=== PATIENT | male | born 1980 | race African-American/Black ===

== ENCOUNTER 2017-09-24 15:30 | Inpatient (IN) | payer MEDICAID ==
[~2017-09-24] VITALS: Ht 188 cm; Wt 46.7 kg
[2017-09-24] MEDS ORDERED: Cefepime HCl 1 GM in NS 55 ML IV STA (15:38)
[2017-09-24 15:41] VITALS: BP 128/79
[2017-09-24] MEDS ORDERED: NS 1000ml 1,400 ML IVLG ONE (15:45)
[2017-09-24] MEDS ORDERED: Vancomycin 1 GM in NS 275 ML IV ONE (15:45)
[2017-09-24] MEDS ORDERED: PROAIR HFA8.5 GM INH (15:49)
--- NOTE | 2017-09-24 15:57 | Emergency Room Report ---
History of Present Illness General Chief Complaint: Chest Pain Source: Patient Present Illness HPI The patient called EMS due to chest pain. He's been drinking alcohol and using cocaine. He states he's had trouble with his heart the past with abnormal echocardiogram. EMS gave him aspirin. In addition to that they were unable to give him nitrates because he is taking an [id number] sexual enhancing drug. The pain is now is 6/10. Somewhat pleuritic and exertional. He feels anxiety with this but no nausea. There is been no diaphoresis. The patient does have a productive cough with yellowish to brown phlegm without blood. He also complains about green diarrhea. There is no blood. He also has an abscess in his left buttocks that's been enlarging over the last several days. There is no drainage. The patient is HIV positive and has been off of antivirals for many months. He suffers from PTSD and depression but is not suicidal at this time. Patient states that he was treated for gonorrhea 3 weeks ago and is uncertain whether he's reinfected at this time. Allergies: Coded Allergies: SULFA (SULFONAMIDE ANTIBIOTICS) (Verified Allergy, Unknown, 09/24/17) Uncoded Allergies: SULFA (Allergy, Unknown, 09/24/17) Patient History Past Medical History: see triage record Social History: Reports: smoking, alcohol use, drug use Social History Narrative sometimes homeless Reviewed Nursing Documentation: PMH: Agreed, PSxH: Agreed Nursing Documentation-PMH Hx Cardiac Problems: Yes - "enlarged heart" Hx Asthma: Yes History Of Psychiatric Problem: Yes - PTSD; major depression Review of Systems All Other Systems: negative except mentioned in HPI Physical Exam Vital Signs Date Time Temp Pulse Resp B/P (MAP) Pulse Ox O2 Delivery O2 Flow Rate FiO2 09/24/17 15:37 101.3 94 16 130/73 98 Room Air Sp02 EP Interpretation: reviewed, normal General Appearance: well appearing, no apparent distress, GCS 15, thin Head: normocephalic Eyes: bilateral eye PERRL, bilateral eye Scleral Injection ENT: moist mucus membranes Neck: supple Respiratory: lungs clear, normal breath sounds Cardiovascular #1: regular rate, rhythm Cardiovascular #2: 2+ radial (R) Gastrointestinal: normal inspection, normal bowel sounds, non tender, no mass, non-distended, scaphoid Musculoskeletal: back normal, gait/station normal, normal range of motion Neurologic: alert, oriented x3, grossly normal Psychiatric: mood/affect normal, no suicidal/homicidal ideation Skin: warm/dry, other - deep induration L buttock without erythema Medical Decision Making Diagnostic Impression: Primary Impression: Cellulitis, gluteal, left Additional Impressions: Substance abuse Chest pain Qualified Codes: R07.9 - Chest pain, unspecified HIV (human immunodeficiency virus infection) Noncompliance with antiviral regimen h/o PTSD ER Course The patient presents with chest pain after drug use with a fever and off of antivirals. Differential includes pneumonia, sepsis, abscess/cellulitis, urinary tract infection amongst others. We also have to exclude acute myocardial infarction. Evaluation will be with EKG and cardiac labs. Blood cultures will be obtained including lactate a. The patient will be treated with Tylenol and fluid bolus with antibiotics. He to his immunocompromise state hemostatically will need to be admitted to the hospital. EKG no injury. CXR no infiltrate. Labs with pyuria, normal/low WBC, Tox + for cocaine, THC and amphetamines (BA = 1). Lactic acid normal. Troponin negative. Antibiotics begun. IV fluids infusing. Pain lessened and sleeping. Cellulitis/abscess not at point to be lanced. May need surgical consult in near future. Patient admitted med Dr. Ellis. No beds, signed out to Dr. Carlson. Laboratory Tests Test 09/24/17 15:50 09/24/17 15:55 09/25/17 05:10 Urine Color Hailee Urine Appearance Slightly cloudy Urine pH 6 (4.5-8.0) Urine Specific [place] 1.020 (1.005-1.035) Urine Protein 2+ (NEGATIVE) H Urine Glucose (UA) Negative (NEGATIVE) Urine Ketones Negative (NEGATIVE) Urine Occult Blood Negative (NEGATIVE) Urine Nitrite Negative (NEGATIVE) Urine Bilirubin Negative (NEGATIVE) Urine Ictotest Negative Urine Urobilinogen 4 MG/DL (0.0-1.0) H Urine Leukocyte Esterase 1+ (NEGATIVE) H Urine RBC 0 /HPF (0 - 0) Urine WBC 10-15 /HPF (0 - 0) H Urine Squamous Epithelial Cells Few /LPF (NONE/OCC) Urine Bacteria Few /HPF (NONE) Urine Mucus Moderate /LPF (NONE/OCC) H Urine Opiates Screen Negative (NEGATIVE) Urine Barbiturates Screen Negative (NEGATIVE) Phencyclidine (PCP) Screen Negative (NEGATIVE) Urine Amphetamines Screen Positive (NEGATIVE) H Urine Benzodiazepines Screen Negative (NEGATIVE) Urine Cocaine Screen Positive (NEGATIVE) H Urine Marijuana (THC) Screen Positive (NEGATIVE) H Serum Alcohol 1 mg/dL Neisseria gonorrhoeae RNA Pending White Blood Count 8.6 K/UL (4.8-10.8) 6.2 K/UL (4.8-10.8) Red Blood Count 4.47 M/UL (4.70-6.10) L 4.30 M/UL (4.70-6.10) L Hemoglobin 13.5 G/DL (14.2-18.0) L 13.1 G/DL (14.2-18.0) L Hematocrit 42.7 % (42.0-52.0) 40.9 % (42.0-52.0) L Mean Corpuscular Volume 96 FL (80-99) 95 FL (80-99) Mean Corpuscular Hemoglobin 30.3 PG (27.0-31.0) 30.6 PG (27.0-31.0) Mean Corpuscular Hemoglobin Concent 31.7 G/DL (32.0-36.0) L 32.1 G/DL (32.0-36.0) Red Cell Distribution Width 12.2 % (11.6-14.8) 11.9 % (11.6-14.8) Platelet Count 202 K/UL (150-450) 210 K/UL (150-450) Mean Platelet Volume 5.4 FL (6.5-10.1) L 6.1 FL (6.5-10.1) L Neutrophils (%) (Auto) 65.4 % (45.0-75.0) 62.9 % (45.0-75.0) Lymphocytes (%) (Auto) 21.0 % (20.0-45.0) 22.6 % (20.0-45.0) Monocytes (%) (Auto) 11.6 % (1.0-10.0) H 11.3 % (1.0-10.0) H Eosinophils (%) (Auto) 1.4 % (0.0-3.0) 2.4 % (0.0-3.0) Basophils (%) (Auto) 0.6 % (0.0-2.0) 0.8 % (0.0-2.0) Prothrombin Time 9.7 SEC (9.30-11.50) Prothrombin Time INR 0.9 (0.9-1.1) PTT 30 SEC (23-33) Sodium Level 138 MMOL/L (136-145) 137 MMOL/L (136-145) Potassium Level 3.5 MMOL/L (3.5-5.1) 4.0 MMOL/L (3.5-5.1) Chloride Level 101 MMOL/L (98-107) 105 MMOL/L (98-107) Carbon Dioxide Level 29 MMOL/L (21-32) 24 MMOL/L (21-32) Blood Urea Nitrogen 14 mg/dL (7-18) 9 mg/dL (7-18) Creatinine 1.1 MG/DL (0.55-1.30) 0.9 MG/DL (0.55-1.30) Estimate Glomerular Filtration Rate > 60 mL/min (>60) > 60 mL/min (>60) Glucose Level 101 MG/DL (74-106) 96 MG/DL (74-106) Lactic Acid Level 1.70 mmol/L (0.66-2.22) Calcium Level 8.6 MG/DL (8.5-10.1) 8.1 MG/DL (8.5-10.1) L Total Bilirubin 0.4 MG/DL (0.2-1.0) 0.4 MG/DL (0.2-1.0) Aspartate Amino Transferase (AST) 17 U/L (15-37) 15 U/L (15-37) Alanine Aminotransferase (ALT) 15 U/L (12-78) 18 U/L (12-78) Alkaline Phosphatase 65 U/L (46-116) 49 U/L (46-116) Total Creatine Kinase 162 U/L (26-140) H Troponin I 0.000 ng/mL (0.000-0.056) Pro-B-Type Natriuretic Peptide 13 pg/mL (0-125) Total Protein 8.4 G/DL (6.4-8.2) H 7.1 G/DL (6.4-8.2) Albumin 3.6 G/DL (3.4-5.0) 2.9 G/DL (3.4-5.0) L Globulin 4.8 g/dL 4.2 g/dL Lipase 78 U/L (< 60) H Rapid Plasma Reagin Pending Anion Gap 8 mmol/L (5-15) Albumin/Globulin Ratio 0.7 (1.0-2.7) L EKG Diagnostic Results Rate: normal Rhythm: NSR ST Segments: no acute changes Rhythm Strip Diag. Results EP Interpretation: yes Rhythm: NSR, no PVC's, no ectopy Chest X-Ray Diagnostic Results Chest X-Ray Diagnostic Results : Chest X-Ray Ordered: Yes # of Views/Limited/Complete: 1 View Indication: Other EP Interpretation: Yes Interpretation: no consolidation, no effusion, no pneumothorax, no acute cardiopulmonary disease Impression: No acute disease Electronically Signed by: Chino Huerta MD Last Vital Signs Date Time Temp Pulse Resp B/P (MAP) Pulse Ox O2 Delivery O2 Flow Rate FiO2 09/25/17 00:00 97.8 77 20 107/56 97 Room Air Status: improved Disposition: ADMITTED INPATIENT Condition: Serious Chino Huerta M.D. Sep 24, 2017 15:57
[2017-09-24 16:24] LABS: APPEARANCE,URINE SLIGHTLY CLOUDY; KETONES,URINE NEGATIVE (NEGATIVE); LEUKOCYTE ESTERASE ,URINE 1+ (NEGATIVE); NITRITE,URINE NEGATIVE (NEGATIVE); PH,URINE 6 (4.5-8.0); PROTEIN,URINE 2+ (NEGATIVE); UROBILINOGEN,URINE 4 MG/DL (0.0-1.0)
[2017-09-24 16:24] LABS: BASOPHILS % (AUTO) 0.6 % (0.0-2.0); EOSINOPHILS % (AUTO) 1.4 % (0.0-3.0); MEAN CORPUSCULAR HEMOGLOBIN 30.3 PG (27.0-31.0); MEAN CORPUSCULAR HGB CONC 31.7 G/DL (32.0-36.0); MEAN CORPUSCULAR VOLUME 96 FL (80-99); MEAN PLATELET VOLUME 5.4 FL (6.5-10.1); MONOCYTES % (AUTO) 11.6 % (1.0-10.0); NEUTROPHILS % (AUTO) 65.4 % (45.0-75.0); PLATELET COUNT 202 K/UL (150-450); RED BLOOD COUNT 4.47 M/UL (4.70-6.10); RED CELL DISTRIBUTION WIDTH 12.2 % (11.6-14.8); WHITE BLOOD COUNT 8.6 K/UL (4.8-10.8)
[2017-09-24 16:35] LABS: BACTERIA,URINE FEW /HPF; ICTOTEST NEGATIVE; MUCUS,URINE MODERATE /LPF (NONE/OCC); RBC,URINE 0 /HPF (0 - 0); SQUAMOUS EPITHELIAL CELL,UR FEW /LPF (NONE/OCC)
[2017-09-24 16:36] LABS: INR 0.9 (0.9-1.1); PROTHROMBIN TIME 9.7 SEC (9.30-11.50)
[2017-09-24] MEDS ORDERED: Cefepime 1gm vial ONE (16:57)
[2017-09-24 17:21] LABS: CALCIUM 8.6 MG/DL (8.5-10.1); CARBON DIOXIDE 29 MMOL/L (21-32); CHLORIDE 101 MMOL/L (98-107); CREATININE 1.1 MG/DL (0.55-1.30); GLOMERULAR FILTRATION RATE > 60 mL/min (>60); POTASSIUM 3.5 MMOL/L (3.5-5.1); SODIUM 138 MMOL/L (136-145)
[2017-09-24 17:28] LABS: ALANINE AMINOTRANSFERASE 15 U/L (12-78); ASPARTATE AMINO TRANSFERASE 17 U/L (15-37); TOTAL PROTEIN 8.4 G/DL (6.4-8.2)
[2017-09-24 17:53] VITALS: BP 112/68
[2017-09-24 17:59] LABS: LIPASE 78 U/L (< 60)
[2017-09-24] MEDS ORDERED: Vancomycin 1gm inj IVPB ONE (18:45)
[2017-09-24 19:30] VITALS: BP 108/64
[2017-09-24 21:00] VITALS: BP 110/68
[2017-09-24] MEDS ORDERED: Miralax 17gm pkt ORAL PRN (21:15)
[2017-09-24] MEDS ORDERED: Nitroglycerin Subl 0.4mg tab SL PRN (21:15)
[2017-09-24] MEDS ORDERED: Albuterol/Ipratropium 3ml neb HHN PRN (21:15)
[2017-09-24 22:15] VITALS: BP 109/70
[2017-09-25] VITALS: BP 107/56
[2017-09-25] MEDS ORDERED: Vancomycin 1 GM in D5W 275 ML IV SCH (00:30)
[2017-09-25 07:05] LABS: BASOPHILS % (AUTO) 0.8 % (0.0-2.0); EOSINOPHILS % (AUTO) 2.4 % (0.0-3.0); LYMPHOCYTES % (AUTO) 22.6 % (20.0-45.0); MEAN CORPUSCULAR HEMOGLOBIN 30.6 PG (27.0-31.0); MEAN CORPUSCULAR HGB CONC 32.1 G/DL (32.0-36.0); MEAN CORPUSCULAR VOLUME 95 FL (80-99); MEAN PLATELET VOLUME 6.1 FL (6.5-10.1); MONOCYTES % (AUTO) 11.3 % (1.0-10.0); NEUTROPHILS % (AUTO) 62.9 % (45.0-75.0); PLATELET COUNT 210 K/UL (150-450); RED CELL DISTRIBUTION WIDTH 11.9 % (11.6-14.8); WHITE BLOOD COUNT 6.2 K/UL (4.8-10.8)
[2017-09-25] MEDS: Norco 10mg/325mg tab ORAL PRN ×2 (07:05→13:20)
[2017-09-25 07:51] LABS: ALANINE AMINOTRANSFERASE 18 U/L (12-78); ALBUMIN/GLOBULIN RATIO 0.7 (1.0-2.7); ANION GAP 8 mmol/L (5-15); ASPARTATE AMINO TRANSFERASE 15 U/L (15-37); CALCIUM 8.1 MG/DL (8.5-10.1); CARBON DIOXIDE 24 MMOL/L (21-32); CHLORIDE 105 MMOL/L (98-107); CREATININE 0.9 MG/DL (0.55-1.30); GLOMERULAR FILTRATION RATE > 60 mL/min (>60); SODIUM 137 MMOL/L (136-145); TOTAL PROTEIN 7.1 G/DL (6.4-8.2)
[2017-09-25] MEDS ORDERED: Vancomycin 500mg/D5W 110ml IVPB SCH ×2 (08:00)
[2017-09-25 09:00] VITALS: BP 121/72
[2017-09-25] MEDS ORDERED: Heparin 5000 units/ml inj SUBQ SCH (09:00)
[2017-09-25] MEDS ORDERED: Cefepime HCl 2 GM in D5W 110 ML IV SCH (09:00)
--- NOTE | 2017-09-25 10:31 | Diagnostic Imaging Report ---
Indication: COUGH Technique: One view of the chest Comparison: none Findings: Lungs and pleural spaces are clear. Heart size is normal Impression: No acute process This agrees with the preliminary interpretation provided by the emergency room physician
--- NOTE | 2017-09-25 12:21 | Diagnostic Imaging Report ---
Indication: DYSPNEA Technique: One view of the chest Comparison: 09/24/2017 Findings: Lungs and pleural spaces are clear. Heart size is normal . Less optimal inspiration currently Impression: No acute process
--- NOTE | 2017-09-25 13:22 | Consultation ---
Consult Note Consult Note [id number] LYDIA GOODWIN M.D. Sep 25, 2017 13:22
[2017-09-25] MEDS ORDERED: Promethazine/Codeine 5ml UD ORAL PRN (15:00)
--- NOTE | 2017-09-25 15:03 | History and Physical ---
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 He also complains about green diarrhea. There is no blood. He also has an abscess in his left buttocks that's been enlarging over the last several days. Allergies: Coded Allergies: SULFA (SULFONAMIDE ANTIBIOTICS) (Verified Allergy, Unknown, 09/24/17) Uncoded Allergies: SULFA (Allergy, Unknown, 09/24/17) Medication History Scheduled Albuterol Sulfate* (Proair Hfa*), 2 PUFFS INH Q6H, (Reported) Patient History Healthcare decision maker N Resuscitation status Advanced Directive on File Past Medical/Surgical History Past Medical/Surgical History: (1) HIV (human immunodeficiency virus infection) (2) Substance abuse Review of Systems All Other Systems: negative except mentioned in HPI Physical Exam General Appearance: cachetic Lines, tubes and drains: peripheral HEENT: normocephalic, atraumatic Neck: non-tender, normal alignment Respiratory/Chest: chest wall non-tender, lungs clear Breasts: no masses Cardiovascular/Chest: normal peripheral pulses Abdomen: normal bowel sounds, non tender, hyperactive bowel sounds Genitourinary/Rectal: normal genital exam Extremities: normal range of motion Skin Exam: normal pigmentation 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 Last 24 Hour Vital Signs Date Time Temp Pulse Resp B/P (MAP) Pulse Ox O2 Delivery O2 Flow Rate FiO2 09/25/17 09:00 98.6 74 20 121/72 98 Room Air 09/25/17 00:00 97.8 77 20 107/56 97 Room Air 09/24/17 22:40 98.1 75 20 109/70 99 Room Air 09/24/17 22:15 98.1 75 20 109/70 99 Room Air 09/24/17 21:00 99.1 75 18 110/68 100 Room Air 09/24/17 19:30 99.8 78 18 108/64 100 Room Air 09/24/17 17:57 99.9 09/24/17 17:53 99.9 77 18 112/68 100 Room Air 09/24/17 15:41 101.3 88 25 128/79 98 Room Air 09/24/17 15:41 88 25 Room Air 09/24/17 15:37 101.3 94 16 130/73 98 Room Air Intake and Output 09/25/17 09/26/17 19:00 07:00 Intake Total 520 ml Balance 520 ml IV Total 520 ml Laboratory Tests Test 09/24/17 15:50 09/24/17 15:55 09/25/17 05:10 Urine Color Hailee Urine Appearance Slightly cloudy Urine pH 6 (4.5-8.0) Urine Specific [place] 1.020 (1.005-1.035) Urine Protein 2+ (NEGATIVE) H Urine Glucose (UA) Negative (NEGATIVE) Urine Ketones Negative (NEGATIVE) Urine Occult Blood Negative (NEGATIVE) Urine Nitrite Negative (NEGATIVE) Urine Bilirubin Negative (NEGATIVE) Urine Ictotest Negative Urine Urobilinogen 4 MG/DL (0.0-1.0) H Urine Leukocyte Esterase 1+ (NEGATIVE) H Urine RBC 0 /HPF (0 - 0) Urine WBC 10-15 /HPF (0 - 0) H Urine Squamous Epithelial Cells Few /LPF (NONE/OCC) Urine Bacteria Few /HPF (NONE) Urine Mucus Moderate /LPF (NONE/OCC) H Urine Opiates Screen Negative (NEGATIVE) Urine Barbiturates Screen Negative (NEGATIVE) Phencyclidine (PCP) Screen Negative (NEGATIVE) Urine Amphetamines Screen Positive (NEGATIVE) H Urine Benzodiazepines Screen Negative (NEGATIVE) Urine Cocaine Screen Positive (NEGATIVE) H Urine Marijuana (THC) Screen Positive (NEGATIVE) H Serum Alcohol 1 mg/dL Neisseria gonorrhoeae RNA Pending White Blood Count 8.6 K/UL (4.8-10.8) 6.2 K/UL (4.8-10.8) Red Blood Count 4.47 M/UL (4.70-6.10) L 4.30 M/UL (4.70-6.10) L Hemoglobin 13.5 G/DL (14.2-18.0) L 13.1 G/DL (14.2-18.0) L Hematocrit 42.7 % (42.0-52.0) 40.9 % (42.0-52.0) L Mean Corpuscular Volume 96 FL (80-99) 95 FL (80-99) Mean Corpuscular Hemoglobin 30.3 PG (27.0-31.0) 30.6 PG (27.0-31.0) Mean Corpuscular Hemoglobin Concent 31.7 G/DL (32.0-36.0) L 32.1 G/DL (32.0-36.0) Red Cell Distribution Width 12.2 % (11.6-14.8) 11.9 % (11.6-14.8) Platelet Count 202 K/UL (150-450) 210 K/UL (150-450) Mean Platelet Volume 5.4 FL (6.5-10.1) L 6.1 FL (6.5-10.1) L Neutrophils (%) (Auto) 65.4 % (45.0-75.0) 62.9 % (45.0-75.0) Lymphocytes (%) (Auto) 21.0 % (20.0-45.0) 22.6 % (20.0-45.0) Monocytes (%) (Auto) 11.6 % (1.0-10.0) H 11.3 % (1.0-10.0) H Eosinophils (%) (Auto) 1.4 % (0.0-3.0) 2.4 % (0.0-3.0) Basophils (%) (Auto) 0.6 % (0.0-2.0) 0.8 % (0.0-2.0) Prothrombin Time 9.7 SEC (9.30-11.50) Prothromb Time International Ratio 0.9 (0.9-1.1) Activated Partial Thromboplast Time 30 SEC (23-33) Sodium Level 138 MMOL/L (136-145) 137 MMOL/L (136-145) Potassium Level 3.5 MMOL/L (3.5-5.1) 4.0 MMOL/L (3.5-5.1) Chloride Level 101 MMOL/L (98-107) 105 MMOL/L (98-107) Carbon Dioxide Level 29 MMOL/L (21-32) 24 MMOL/L (21-32) Blood Urea Nitrogen 14 mg/dL (7-18) 9 mg/dL (7-18) Creatinine 1.1 MG/DL (0.55-1.30) 0.9 MG/DL (0.55-1.30) Estimat Glomerular Filtration Rate > 60 mL/min (>60) > 60 mL/min (>60) Glucose Level 101 MG/DL (74-106) 96 MG/DL (74-106) Lactic Acid Level 1.70 mmol/L (0.66-2.22) Calcium Level 8.6 MG/DL (8.5-10.1) 8.1 MG/DL (8.5-10.1) L Total Bilirubin 0.4 MG/DL (0.2-1.0) 0.4 MG/DL (0.2-1.0) Aspartate Amino Transf (AST/SGOT) 17 U/L (15-37) 15 U/L (15-37) Alanine Aminotransferase (ALT/SGPT) 15 U/L (12-78) 18 U/L (12-78) Alkaline Phosphatase 65 U/L (46-116) 49 U/L (46-116) Total Creatine Kinase 162 U/L (26-140) H Troponin I 0.000 ng/mL (0.000-0.056) Pro-B-Type Natriuretic Peptide 13 pg/mL (0-125) Total Protein 8.4 G/DL (6.4-8.2) H 7.1 G/DL (6.4-8.2) Albumin 3.6 G/DL (3.4-5.0) 2.9 G/DL (3.4-5.0) L Globulin 4.8 g/dL 4.2 g/dL Lipase 78 U/L (< 60) H Rapid Plasma Reagin Pending Anion Gap 8 mmol/L (5-15) Albumin/Globulin Ratio 0.7 (1.0-2.7) L Microbiology Date/Time Source Procedure Growth Status 09/24/17 15:50 Urine,Clean Catch Urine Culture - Preliminary NO GROWTH Resulted Height (Feet): 6 Height (Inches): 2.00 Weight (Pounds): 103 Medications Current Medications Medications (Trade) Dose Ordered Sig/[place]ron[place] Route PRN Reason Start Time Stop Time Status Last Admin Dose Admin Acetaminophen (Tylenol) 650 mg Q4H PRN ORAL fever 09/24/17 21:15 10/24/17 21:14 09/25/17 04:32 Acetaminophen/ Hydrocodone Bitart ([place] 10325) 1 ea Q6H PRN ORAL moderate Pain 09/25/17 06:45 11/20/17 06:44 09/25/17 13:20 Albuterol/ Ipratropium (Albuterol/ Ipratropium) 3 ml Q4H PRN HHN Shortness of Breath 09/24/17 21:15 09/29/17 21:14 Heparin Sodium (Porcine) (Heparin 5000 units/ml) 5,000 units EVERY 12 HOURS SUBQ 09/25/17 09:00 10/25/17 08:59 09/25/17 08:58 Levofloxacin 150 ml @ 100 mls/hr Q24H IVPB 09/25/17 15:00 10/02/17 14:59 Nitroglycerin (Ntg) 0.4 mg Every 5 Minutes PRN SL Prn Chest Pain 09/24/17 21:15 10/24/17 21:14 Ondansetron HCl (Zofran) 4 mg Q6H PRN IVP Nausea & Vomiting 09/24/17 21:15 10/24/17 21:14 Polyethylene Glycol (Miralax) 17 gm DAILYPRN PRN ORAL Constipation 09/24/17 21:15 10/24/17 21:14 Sodium Chloride 1,000 ml @ 150 mls/hr Q6H40M IV 09/24/17 23:00 10/24/17 22:59 09/25/17 06:05 Temazepam (Restoril) 15 mg HSPRN PRN ORAL Insomnia 09/24/17 21:15 10/01/17 21:14 Vancomycin HCl (Vanco rx to dose) 1 ea DAILY PRN MISC PER PROTOCOL 09/24/17 22:45 10/24/17 22:44 Vancomycin HCl 500 mg/Dextrose 110 ml @ 110 mls/hr Q12H IVPB 09/25/17 08:00 09/30/17 07:59 09/25/17 08:54 Assessment/Plan Problem List: (1) Cellulitis, gluteal, left ICD Codes: L03.317 - Cellulitis of buttock SNOMED: 91181484 (2) Purulent bronchitis ICD Codes: J41.1 - Mucopurulent chronic bronchitis SNOMED: 48328532 (3) HIV (human immunodeficiency virus infection) ICD Codes: B20 - Human immunodeficiency virus [HIV] disease SNOMED: 78566920 (4) Substance abuse ICD Codes: F19.10 - Other psychoactive substance abuse, uncomplicated SNOMED: 66492750 Assessment/Plan check sputum Iv abx ID evaluation. RAY DAVIDSON Sep 25, 2017 15:03
--- NOTE | 2017-09-25 15:08 | Pulmonology Progress Note ---
Assessment/Plan Problems: (1) Cellulitis, gluteal, left (2) Purulent bronchitis (3) HIV (human immunodeficiency virus infection) (4) Substance abuse Assessment/Plan ID consult appreciated Surgeon called respiratory treatment check sputum d/w oncology social worker. Subjective ROS Limited/Unobtainable: No Constitutional: Reports: no symptoms HEENT: Repors: no symptoms Respiratory: Reports: no symptoms Allergies: Coded Allergies: SULFA (SULFONAMIDE ANTIBIOTICS) (Verified Allergy, Unknown, 09/24/17) Uncoded Allergies: SULFA (Allergy, Unknown, 09/24/17) Objective Last 24 Hour Vital Signs Date Time Temp Pulse Resp B/P (MAP) Pulse Ox O2 Delivery O2 Flow Rate FiO2 09/25/17 09:00 98.6 74 20 121/72 98 Room Air 09/25/17 00:00 97.8 77 20 107/56 97 Room Air 09/24/17 22:40 98.1 75 20 109/70 99 Room Air 09/24/17 22:15 98.1 75 20 109/70 99 Room Air 09/24/17 21:00 99.1 75 18 110/68 100 Room Air 09/24/17 19:30 99.8 78 18 108/64 100 Room Air 09/24/17 17:57 99.9 09/24/17 17:53 99.9 77 18 112/68 100 Room Air 09/24/17 15:41 101.3 88 25 128/79 98 Room Air 09/24/17 15:41 88 25 Room Air 09/24/17 15:37 101.3 94 16 130/73 98 Room Air Intake and Output 09/25/17 09/26/17 19:00 07:00 Intake Total 520 ml Balance 520 ml IV Total 520 ml General Appearance: cachetic HEENT: normocephalic, atraumatic Respiratory/Chest: chest wall non-tender, lungs clear Cardiovascular: normal peripheral pulses, regular rhythm Abdomen: normal bowel sounds, soft, non tender, no organomegaly Genitourinary: normal external genitalia Extremities: no cyanosis Skin: no rash, no lesions Microbiology Date/Time Source Procedure Growth Status 09/24/17 15:50 Urine,Clean Catch Urine Culture - Preliminary NO GROWTH Resulted Laboratory Tests 09/24/17 15:50: Urine Color Hailee, Urine Appearance Slightly cloudy, Urine pH 6, Urine Specific [place] 1.020, Urine Protein 2+H, Urine Glucose (UA) Negative, Urine Ketones Negative, Urine Occult Blood Negative, Urine Nitrite Negative, Urine Bilirubin Negative, Urine Ictotest Negative, Urine Urobilinogen 4H, Urine Leukocyte Esterase 1+H, Urine RBC 0, Urine WBC 10-15H, Urine Squamous Epithelial Cells Few , Urine Bacteria Few, Urine Mucus ModerateH, Urine Opiates Screen Negative, Urine Barbiturates Screen Negative, Phencyclidine (PCP) Screen Negative, Urine Amphetamines Screen PositiveH, Urine Benzodiazepines Screen Negative, Urine Cocaine Screen PositiveH, Urine Marijuana (THC) Screen PositiveH, Serum Alcohol 1, Neisseria gonorrhoeae RNA [Pending] 09/24/17 15:55: White Blood Count 8.6, Red Blood Count 4.47L, Hemoglobin 13.5L, Hematocrit 42.7 , Mean Corpuscular Volume 96, Mean Corpuscular Hemoglobin 30.3, Mean Corpuscular Hemoglobin Concent 31.7L, Red Cell Distribution Width 12.2, Platelet Count 202, Mean Platelet Volume 5.4L, Neutrophils (%) (Auto) 65.4, Lymphocytes (%) (Auto) 21.0, Monocytes (%) (Auto) 11.6H, Eosinophils (%) (Auto) 1.4, Basophils (%) (Auto) 0.6, Prothrombin Time 9.7, Prothromb Time International Ratio 0.9, Activated Partial Thromboplast Time 30, Sodium Level 138, Potassium Level 3.5, Chloride Level 101, Carbon Dioxide Level 29, Blood Urea Nitrogen 14, Creatinine 1.1, Estimat Glomerular Filtration Rate > 60, Glucose Level 101, Lactic Acid Level 1.70, Calcium Level 8.6, Total Bilirubin 0.4, Aspartate Amino Transf (AST/SGOT) 17, Alanine Aminotransferase (ALT/SGPT) 15, Alkaline Phosphatase 65, Total Creatine Kinase 162H, Troponin I 0.000, Pro-B -Type Natriuretic Peptide 13, Total Protein 8.4H, Albumin 3.6, Globulin 4.8, Lipase 78H, Rapid Plasma Reagin [Pending] 09/25/17 05:10: White Blood Count 6.2, Red Blood Count 4.30L, Hemoglobin 13.1L, Hematocrit 40.9L , Mean Corpuscular Volume 95, Mean Corpuscular Hemoglobin 30.6, Mean Corpuscular Hemoglobin Concent 32.1, Red Cell Distribution Width 11.9, Platelet Count 210, Mean Platelet Volume 6.1L, Neutrophils (%) (Auto) 62.9, Lymphocytes ( %) (Auto) 22.6, Monocytes (%) (Auto) 11.3H, Eosinophils (%) (Auto) 2.4, Basophils (%) (Auto) 0.8, Sodium Level 137, Potassium Level 4.0, Chloride Level 105, Carbon Dioxide Level 24, Blood Urea Nitrogen 9, Creatinine 0.9, Estimat Glomerular Filtration Rate > 60, Glucose Level 96, Calcium Level 8.1L, Total Bilirubin 0.4, Aspartate Amino Transf (AST/SGOT) 15, Alanine Aminotransferase ( ALT/SGPT) 18, Alkaline Phosphatase 49, Total Protein 7.1, Albumin 2.9L, Globulin 4.2, Anion Gap 8, Albumin/Globulin Ratio 0.7L Current Medications Medications (Trade) Dose Ordered Sig/[place] Route PRN Reason Start Time Stop Time Status Last Admin Dose Admin Acetaminophen (Tylenol) 650 mg Q4H PRN ORAL fever 09/24/17 21:15 10/24/17 21:14 09/25/17 04:32 Acetaminophen/ Hydrocodone Bitart ([place] 10/325) 1 ea Q6H PRN ORAL moderate Pain 09/25/17 06:45 10/02/17 06:44 09/25/17 13:20 Albuterol/ Ipratropium (Albuterol/ Ipratropium) 3 ml Q4H PRN HHN Shortness of Breath 09/24/17 21:15 09/29/17 21:14 Albuterol/ Ipratropium (Albuterol/ Ipratropium) 3 ml Q6HRT HHN 09/25/17 19:00 09/30/17 18:59 UNV Heparin Sodium (Porcine) (Heparin 5000 units/ml) 5,000 units EVERY 12 HOURS SUBQ 09/25/17 09:00 10/25/17 08:59 09/25/17 08:58 Levofloxacin 150 ml @ 100 mls/hr Q24H IVPB 09/25/17 15:00 10/02/17 14:59 Nitroglycerin (Ntg) 0.4 mg Every 5 Minutes PRN SL Prn Chest Pain 09/24/17 21:15 10/24/17 21:14 Ondansetron HCl (Zofran) 4 mg Q6H PRN IVP Nausea & Vomiting 09/24/17 21:15 10/24/17 21:14 Polyethylene Glycol (Miralax) 17 gm DAILYPRN PRN ORAL Constipation 09/24/17 21:15 10/24/17 21:14 Promethazine HCl/ Codeine (Phenergan with Codeine) 5 ml Q4H PRN ORAL For Cough 09/25/17 15:00 10/25/17 14:59 Sodium Chloride 1,000 ml @ 150 mls/hr Q6H40M IV 09/24/17 23:00 10/24/17 22:59 09/25/17 06:05 Temazepam (Restoril) 15 mg HSPRN PRN ORAL Insomnia 09/24/17 21:15 10/01/17 21:14 Vancomycin HCl (Vanco rx to dose) 1 ea DAILY PRN MISC PER PROTOCOL 09/24/17 22:45 10/24/17 22:44 Vancomycin HCl 500 mg/Dextrose 110 ml @ 110 mls/hr Q12H IVPB 09/25/17 08:00 09/30/17 07:59 09/25/17 08:54 RAY DAVIDSON Sep 25, 2017 15:08
[2017-09-25 16:00] VITALS: BP 115/71
--- NOTE | 2017-09-25 16:01 | Consultation ---
DATE OF CONSULTATION: 09/25/2017 INFECTIOUS DISEASES CONSULTATION CONSULTING PHYSICIAN: Reza Anderson M.D. REQUESTING PHYSICIAN: Aurea Ellis M.D. REASON FOR CONSULTATION: Evaluation of the patient for pneumonia, HIV, left buttock abscess, antibiotic management. HISTORY OF PRESENT ILLNESS: The patient is a 37-year-old male with multiple medical problems as listed above, who was admitted to this medical center due to cough, also swelling and tenderness of the left buttock area. Infectious Diseases consultation has been requested for further evaluation of the patient and antibiotic management. PAST MEDICAL HISTORY: 1. History of HIV, being off of HIV medications for over a year. 2. History of cardiac disease and irregular heartbeat. 3. Hypertension. 4. Asthma. 5. Bronchitis. MEDICATIONS: Vancomycin and cefepime. The patient used to take Prezista, Norvir, and Truvada. ALLERGIES: Sulfa. SOCIAL HISTORY: Significant for abusing marijuana and cocaine. FAMILY HISTORY: Not contributing. PHYSICAL EXAMINATION: VITAL SIGNS: Temperature 98.6, blood pressure 121/72, pulse 86, respiratory rate 18. HEENT: No pale conjunctivae. No icterus. NECK: No lymphadenopathy. CHEST: Clear. HEART: S1 and S2. ABDOMEN: Soft. EXTREMITIES: The patient has abscess in left buttock area. NEUROLOGIC: Awake and alert. LABORATORY AND DIAGNOSTIC DATA: White blood cells 6, hemoglobin 13, platelets 210. UA unremarkable. BUN 9 and creatinine 0.9. ALT, AST and alkaline phosphatase unremarkable. Urine culture is pending. Chest x-ray, no acute process. ASSESSMENT: The patient is a 37-year-old male with multiple medical problems who was admitted to this medical center with: 1. Bronchitis. 2. Human immunodeficiency virus off of medication, unknown CD4 count. 3. Left buttock abscess mostly due to Staphylococcus aureus. 4. History of drug abuse. 5. History of alcohol abuse. 6. Rule out sexually transmitted disease. PLAN: 1. We will continue the patient on vancomycin. We will change cefepime to Levaquin. 2. Monitor CBC. 3. Monitor BMP. 4. We will check CD4 count. 5. Monitor RPR, GC, and chlamydia with screening. 6. Monitor cultures (blood, urine, sputum). 7. Recommend surgical consultation for drainage of the abscess. 8. Based on the patient's clinical course and labs, we will do further recommendation. Thank you, Dr. Ellis, for allowing me to participate in the care of this patient. I will follow the patient with you during this hospitalization. Reza Anderson M.D. DR: Johana JOB#: [id number] CC:
[2017-09-25] MEDS ORDERED: 1/2 NS 1000ml IV ONE ×2 (18:14)
[2017-09-25] MEDS ORDERED: Tubing IV Secondary IV ONE (18:14)
[2017-09-25] MEDS ORDERED: Albuterol/Ipratropium 3ml neb HHN SCH (19:00)
[2017-09-25] MEDS ORDERED: Vancomycin 500 MG in D5W 275 ML IVPB SCH (20:00)
--- NOTE | 2017-09-26 19:00 | Discharge Summary 2 SIG ---
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 He denied blood in the stool. He also reported abscess in the left buttock which was enlarging over the last several days. The patient was febrile, temperature - 101.3 degrees. No leukocytosis. Otherwise, vital signs were stable. Urine toxicology screen was positive for amphetamine, cocaine and marijuana. The patient with history of HIV, bipolar and PTSD as well as the substance abuse. The patient reported not following recently with HIV provider and not taking ART medications. EKG revealed no acute ischemic changes. Troponin was negative. Chest x-ray revealed clear lungs. Lactic acid within normal limits. Urinalysis revealed pyuria. The patient admitted with left gluteal cellulitis, substance abuse, HIV status, purulent bronchitis, and noncompliance with the anti-retroviral therapy. HOSPITAL COURSE: The patient admitted. The patient started on the empiric antibiotics. ID consulted. ID seen and evaluated the patient, optimized antibiotic regimen and suggested surgery evaluation for possible drainage of the abscess. Surgery consult was requested. CD4 count was ordered along with testing for STD. Supplemental oxygen provided as needed to keep pulse oximetry above 92%. Sputum culture collected and was preliminary negative. Blood culture were negative. Urine culture revealed mixed gram-positive organism. No leukocytosis. Fever resolved. Pulse oximetry was stable on room air. Fever resolved next day. No chest pain. egg factory worker seen the patient and discussed housing as well as referral to different resources and importance of following with HIV provider. Psychiatric evaluation was requested due to history of PTSD and bipolar disorder. However, the patient decided to elope. He stated he wants to smoke. The patient was explained by nursing staff about non-smoking policy at [facility] and was offered nicotine patch. The patient refused nicotine patch and at some point eloped. FINAL DIAGNOSES: 1. Left gluteal cellulitis. 2. Purulent bronchitis. 3. Human immunodeficiency virus status. 4. Noncompliance with anti-retroviral therapy. 5. Polysubstance abuse (methamphetamine, cocaine and marijuana). Aurea Ellis M.D. I have been assigned to dictate discharge summary on this account and I was not involved in the patient's management. Terri VegasIvanna sandoval DR: JOÃO JOB#: [id number] CC: VALERIE
--- NOTE | 2017-09-27 08:41 | Cardiology Report ---
APPROVED REPORT EKG Measurement Heart [id number] Normal sinus rhythm Minimal voltage criteria for LVH, may be normal variant Nonspecific ST and T wave abnormality Abnormal ECG
== END 2017-09-25 18:15 | disposition left against medical advice (07) | DRG 894 ==
LOC: EDBD 15:30 → EMR 16:01 → EDBEDREQ 21:38 → 4E 21:40
DX: L03.317 Cellulitis of buttock (principal); B20 Human immunodeficiency virus [HIV] disease; F14.10 Cocaine abuse, uncomplicated; L02.31 Cutaneous abscess of buttock; Z59.0 Homelessness; Z88.2 Allergy status to sulfonamides; J41.1 Mucopurulent chronic bronchitis; F31.9 Bipolar disorder, unspecified; F43.10 Post-traumatic stress disorder, unspecified; Z91.19 Patient's noncompliance with other medical treatment and regimen; F15.10 Other stimulant abuse, uncomplicated; F12.10 Cannabis abuse, uncomplicated; J45.909 Unspecified asthma, uncomplicated; B95.61 Methicillin susceptible Staphylococcus aureus infection as the cause of diseases classified elsewhere; R07.9 Chest pain, unspecified; F17.200 Nicotine dependence, unspecified, uncomplicated
CPT/HCPCS: 36415; 71010; 80053; 80307; 80329; 81003; 82550; 83605; 83690; 83880; 84484; 85025; 85610; 85730; 86592; 87040; 87070; 87081; 87086; 87205; 87590; 93005; 99285

== ENCOUNTER 2017-09-26 05:37 | Inpatient (IN) | payer MEDICAID ==
[~2017-09-26] VITALS: Ht 188 cm; Wt 63.5 kg
[~2017-09-26 05:37] MED LIST: PROAIR HFA8.5 GM INH
--- NOTE | 2017-09-26 05:52 | Emergency Room Report ---
History of Present Illness General Chief Complaint: Skin Rash/Abscess Source: Patient Present Illness HPI Patient 37-year-old male brought in by EMS after increased left buttock swelling. Patient had prior history of HIV. He had recently been in the hospital and left AGAINST MEDICAL ADVICE. Patient was noted to have some drainage from the left buttock area. Patient prior history of cellulitis. He denies any fever he reported having increased pain. Allergies: Coded Allergies: SULFA (SULFONAMIDE ANTIBIOTICS) (Verified Allergy, Unknown, 09/24/17) Patient History Past Medical History: see triage record Reviewed Nursing Documentation: PMH: Agreed, PSxH: Agreed Nursing Documentation-PMH Hx Cardiac Problems: Yes Hx Hypertension: Yes Hx Asthma: Yes Hx Cancer: No Hx Gastrointestinal Problems: No Hx Neurological Problems: Yes Hx Dizziness: Yes Hx Headaches: Yes Hx Weakness: Yes Hx Fatigue: Yes Review of Systems All Other Systems: negative except mentioned in HPI Physical Exam Vital Signs Date Time Temp Pulse Resp B/P (MAP) Pulse Ox O2 Delivery O2 Flow Rate FiO2 09/26/17 05:35 98.1 92 20 146/82 98 Room Air Sp02 EP Interpretation: reviewed, normal General Appearance: normal inspection, well appearing, no apparent distress, alert, GCS 15, thin Head: atraumatic ENT: normal ENT inspection, hearing grossly normal, normal voice Neck: normal inspection, full range of motion, supple, no bony tend Respiratory: normal inspection, lungs clear, normal breath sounds, no respiratory distress, no retraction, no wheezing Cardiovascular #1: regular rate, rhythm, no edema Gastrointestinal: normal inspection, normal bowel sounds, non tender, soft, no guarding, no hernia Genitourinary: no CVA tenderness Musculoskeletal: normal inspection, back normal, normal range of motion Neurologic: normal inspection, alert, oriented x3, responsive, speech normal Psychiatric: normal inspection, judgement/insight normal, mood/affect normal Skin: other - left buttock fluctuance erythema, purulent Medical Decision Making Diagnostic Impression: Primary Impression: Left buttock abscess Additional Impression: HIV disease ER Course Patient presented for skin rash. Differential diagnosis included was not limited to abscess, cellulitis, folliculitis, Fourniere's gangrene, among others.Because of complexity of patient's case laboratory testing and imaging studies were ordered.Patient was given IV antibiotics. The patient appears to have a left buttock abscess.The patient's abscess appears to be a fairly sizable likely management by general surgery. Dr. Ellis was contacted for inpatient management due to complexity of medical condition. Labs Test 09/26/17 06:00 White Blood Count 8.7 K/UL (4.8-10.8) Red Blood Count 4.42 M/UL (4.70-6.10) Hemoglobin 14.2 G/DL (14.2-18.0) Hematocrit 42.3 % (42.0-52.0) Mean Corpuscular Volume 96 FL (80-99) Mean Corpuscular Hemoglobin 32.2 PG (27.0-31.0) Mean Corpuscular Hemoglobin Concent 33.6 G/DL (32.0-36.0) Red Cell Distribution Width 11.8 % (11.6-14.8) Platelet Count 224 K/UL (150-450) Mean Platelet Volume 6.1 FL (6.5-10.1) Neutrophils (%) (Auto) 67.4 % (45.0-75.0) Lymphocytes (%) (Auto) 18.8 % (20.0-45.0) Monocytes (%) (Auto) 11.8 % (1.0-10.0) Eosinophils (%) (Auto) 1.2 % (0.0-3.0) Basophils (%) (Auto) 0.8 % (0.0-2.0) Prothrombin Time 10.3 SEC (9.30-11.50) Prothromb Time International Ratio 1.0 (0.9-1.1) Activated Partial Thromboplast Time 31 SEC (23-33) Sodium Level 135 MMOL/L (136-145) Potassium Level 4.1 MMOL/L (3.5-5.1) Chloride Level 99 MMOL/L (98-107) Carbon Dioxide Level 30 MMOL/L (21-32) Anion Gap 6 mmol/L (5-15) Blood Urea Nitrogen 8 mg/dL (7-18) Creatinine 0.9 MG/DL (0.55-1.30) Estimat Glomerular Filtration Rate > 60 mL/min (>60) Glucose Level 76 MG/DL (74-106) Calcium Level 8.7 MG/DL (8.5-10.1) Total Bilirubin 0.5 MG/DL (0.2-1.0) Aspartate Amino Transf (AST/SGOT) 18 U/L (15-37) Alanine Aminotransferase (ALT/SGPT) 17 U/L (12-78) Alkaline Phosphatase 53 U/L (46-116) Total Protein 8.0 G/DL (6.4-8.2) Albumin 3.3 G/DL (3.4-5.0) Globulin 4.7 g/dL Albumin/Globulin Ratio 0.7 (1.0-2.7) Last Vital Signs Date Time Temp Pulse Resp B/P (MAP) Pulse Ox O2 Delivery O2 Flow Rate FiO2 09/26/17 05:35 98.1 92 20 146/82 98 Room Air Status: improved Disposition: HOME, SELF-CARE Condition: Stable Som Kang Sep 26, 2017 05:52
[2017-09-26] MEDS ORDERED: Unasyn 3gm Inj ONE (05:53)
[2017-09-26] MEDS ORDERED: Ampicillin/Sulbactam Sod 3 GM in NS 110 ML IVPB ONE (06:00)
[2017-09-26] MEDS ORDERED: Nitroglycerin Subl 0.4mg tab SL PRN (06:30)
[2017-09-26] MEDS ORDERED: Miralax 17gm pkt ORAL PRN (06:30)
[2017-09-26] MEDS ORDERED: Albuterol/Ipratropium 3ml neb HHN PRN (06:30)
[2017-09-26 06:34] VITALS: BP 146/82
[2017-09-26 06:55] LABS: BASOPHILS % (AUTO) 0.8 % (0.0-2.0); EOSINOPHILS % (AUTO) 1.2 % (0.0-3.0); LYMPHOCYTES % (AUTO) 18.8 % (20.0-45.0); MEAN CORPUSCULAR HEMOGLOBIN 32.2 PG (27.0-31.0); MEAN CORPUSCULAR HGB CONC 33.6 G/DL (32.0-36.0); MEAN CORPUSCULAR VOLUME 96 FL (80-99); MEAN PLATELET VOLUME 6.1 FL (6.5-10.1); MONOCYTES % (AUTO) 11.8 % (1.0-10.0); NEUTROPHILS % (AUTO) 67.4 % (45.0-75.0); PLATELET COUNT 224 K/UL (150-450); RED BLOOD COUNT 4.42 M/UL (4.70-6.10); RED CELL DISTRIBUTION WIDTH 11.8 % (11.6-14.8); WHITE BLOOD COUNT 8.7 K/UL (4.8-10.8)
[2017-09-26 07:02] LABS: ANION GAP 6 mmol/L (5-15); CALCIUM 8.7 MG/DL (8.5-10.1); CARBON DIOXIDE 30 MMOL/L (21-32); CHLORIDE 99 MMOL/L (98-107); CREATININE 0.9 MG/DL (0.55-1.30); GLOMERULAR FILTRATION RATE > 60 mL/min (>60); POTASSIUM 4.1 MMOL/L (3.5-5.1); SODIUM 135 MMOL/L (136-145)
[2017-09-26 07:05] LABS: PROTHROMBIN TIME 10.3 SEC (9.30-11.50)
[2017-09-26 07:07] LABS: ALANINE AMINOTRANSFERASE 17 U/L (12-78); ALBUMIN/GLOBULIN RATIO 0.7 (1.0-2.7); ASPARTATE AMINO TRANSFERASE 18 U/L (15-37)
[2017-09-26 08:29] VITALS: BP 112/66
[2017-09-26] MEDS: Heparin 5000 units/ml inj SUBQ SCH ×2 (09:00→20:28)
[2017-09-26] MEDS ORDERED: Cefepime HCl 2 GM in D5W 110 ML IV SCH (09:00)
--- NOTE | 2017-09-26 09:09 | Infectious Diseases Prog Note ---
Assessment/Plan Assessment/Plan A: ASSESSMENT: The patient is a 37-year-old male with Fever Bronchitis. Human immunodeficiency virus off of medication, unknown CD4 count. Left buttock abscess mostly due to Staphylococcus aureus. SP I& D 09/26 History of drug abuse. History of alcohol abuse. Rule out sexually transmitted disease. History of cardiac disease and irregular heartbeat. Hypertension. Asthma. Bronchitis PLAN: continue the patient on vancomycin d# 2 and Levaquin. d# 1/ 5 Monitor CBC. Monitor BMP. CD4 count. Monitor RPR, GC, and chlamydia with screening. Monitor cultures (blood, urine, sputum). Recommend surgical consultation for drainage of the abscess. Subjective Constitutional: Denies: no symptoms, fever, chills, fatigue, anorexia, drenching sweats, other Allergies: Coded Allergies: SULFA (SULFONAMIDE ANTIBIOTICS) (Verified Allergy, Unknown, 09/24/17) Objective Vital Signs Last 24 Hour Vital Signs Date Time Temp Pulse Resp B/P (MAP) Pulse Ox O2 Delivery O2 Flow Rate FiO2 09/26/17 08:29 97.0 84 24 112/66 96 Room Air 09/26/17 07:55 98.1 92 20 146/82 98 Room Air 09/26/17 06:34 98.1 92 20 146/82 98 Room Air 09/26/17 05:35 98.1 92 20 146/82 98 Room Air Height (Feet): 6 Height (Inches): 2.00 Weight (Pounds): 140 HEENT: anicteric Respiratory/Chest: no respiratory distress Cardiovascular: regular rhythm Abdomen: no organomegaly Laboratory Tests Test 09/26/17 06:00 White Blood Count 8.7 K/UL (4.8-10.8) Red Blood Count 4.42 M/UL (4.70-6.10) L Hemoglobin 14.2 G/DL (14.2-18.0) Hematocrit 42.3 % (42.0-52.0) Mean Corpuscular Volume 96 FL (80-99) Mean Corpuscular Hemoglobin 32.2 PG (27.0-31.0) H Mean Corpuscular Hemoglobin Concent 33.6 G/DL (32.0-36.0) Red Cell Distribution Width 11.8 % (11.6-14.8) Platelet Count 224 K/UL (150-450) Mean Platelet Volume 6.1 FL (6.5-10.1) L Neutrophils (%) (Auto) 67.4 % (45.0-75.0) Lymphocytes (%) (Auto) 18.8 % (20.0-45.0) L Monocytes (%) (Auto) 11.8 % (1.0-10.0) H Eosinophils (%) (Auto) 1.2 % (0.0-3.0) Basophils (%) (Auto) 0.8 % (0.0-2.0) Prothrombin Time 10.3 SEC (9.30-11.50) Prothromb Time International Ratio 1.0 (0.9-1.1) Activated Partial Thromboplast Time 31 SEC (23-33) Sodium Level 135 MMOL/L (136-145) L Potassium Level 4.1 MMOL/L (3.5-5.1) Chloride Level 99 MMOL/L (98-107) Carbon Dioxide Level 30 MMOL/L (21-32) Anion Gap 6 mmol/L (5-15) Blood Urea Nitrogen 8 mg/dL (7-18) Creatinine 0.9 MG/DL (0.55-1.30) Estimat Glomerular Filtration Rate > 60 mL/min (>60) Glucose Level 76 MG/DL (74-106) Calcium Level 8.7 MG/DL (8.5-10.1) Total Bilirubin 0.5 MG/DL (0.2-1.0) Aspartate Amino Transf (AST/SGOT) 18 U/L (15-37) Alanine Aminotransferase (ALT/SGPT) 17 U/L (12-78) Alkaline Phosphatase 53 U/L (46-116) Total Protein 8.0 G/DL (6.4-8.2) Albumin 3.3 G/DL (3.4-5.0) L Globulin 4.7 g/dL Albumin/Globulin Ratio 0.7 (1.0-2.7) L Current Medications Medications (Trade) Dose Ordered Sig/Petrona Route PRN Reason Start Time Stop Time Status Last Admin Dose Admin Acetaminophen (Tylenol) 650 mg Q4H PRN ORAL fever 09/26/17 06:30 10/26/17 06:29 Albuterol/ Ipratropium (Albuterol/ Ipratropium) 3 ml EVERY 4 HOURS PRN HHN Shortness of Breath 11/14/17 06:30 10/01/17 06:29 Cefepime HCl 2 gm/ Dextrose 110 ml @ 220 mls/hr EVERY 12 HOURS IV 09/26/17 09:00 10/03/17 08:59 Dextrose (Dextrose 50%) STAT PRN IV Hypoglycemia 09/26/17 06:30 10/26/17 06:29 Heparin Sodium (Porcine) (Heparin 5000 units/ml) 5,000 units EVERY 12 HOURS SUBQ 09/26/17 09:00 10/26/17 08:59 Nitroglycerin (Ntg) 0.4 mg Every 5 minutes PRN SL Prn Chest Pain 09/26/17 06:30 10/26/17 06:29 Ondansetron HCl (Zofran) 4 mg Q6H PRN IVP Nausea & Vomiting 09/26/17 06:30 10/26/17 06:29 Polyethylene Glycol (Miralax) 17 gm DAILYPRN PRN ORAL Constipation 09/26/17 06:30 10/26/17 06:29 Temazepam (Restoril) 15 mg HSPRN PRN ORAL Insomnia 09/26/17 06:30 10/03/17 06:29 Vancomycin HCl/ Dextrose 250 ml @ 166.667 mls/hr Q12H IVPB 09/26/17 10:00 10/01/17 09:59 LYDIA GOODWIN M.D. Sep 26, 2017 09:09
--- NOTE | 2017-09-26 09:15 | Consultation ---
History of Present Illness General Chief Complaint: Skin Rash/Abscess Reason for Consultation: left buttock abscess Present Illness HPI 37M with history of HIV no currently on any antivirals or treatment presented with left buttock abscess. As per patient, 4 days ago first noted a small painful lump on left buttock. It has since progressively became larger and more painful. Recently noted some purulent drainage from area. Came to ED yesterday for evaluation and was admitted. Left hospital AMA soon after but then returned to ED. Surgery called to evaluate. Patient evaluated and chart reviewed. Allergies: Coded Allergies: SULFA (SULFONAMIDE ANTIBIOTICS) (Verified Allergy, Unknown, 09/24/17) Medication History Scheduled Albuterol Sulfate* (Proair Hfa*), 2 PUFFS INH Q6H, (Reported) Patient History History Provided By: Medical Record Healthcare decision maker Resuscitation status Advanced Directive on File Past Medical/Surgical History Past Medical/Surgical History: (1) Purulent bronchitis (2) HIV disease (3) Left buttock abscess Review of Systems Constitutional: Denies: no symptoms, see HPI, chills, sweats, fever, malaise, weakness, other Eye: Denies: no symptoms, see HPI, eye pain, blurred vision, tearing, double vision, nose pain, nose congestion, acuity changes, discharge, other ENT: Denies: no symptoms, see HPI, ear pain, ear discharge, nose pain, nose congestion, throat pain, throat swelling, mouth pain, hearing loss, nasal discharge, other Respiratory: Denies: no symptoms, see HPI, cough, orthopnea, shortness of breath, stridor, wheezing, RAMACHANDRAN, sputum, other Cardiovascular: Denies: no symptoms, see HPI, chest pain, edema, palpitations, syncope, PND, other Gastrointestinal: Denies: no symptoms, see HPI, abdominal pain, constipation, diarrhea, nausea, vomiting, melena, hematemesis, other Genitourinary: Denies: no symptoms, see HPI, discharge, dysuria, frequency, hematuria, pain, retention, incontinence, urgency, vag bleed/dc, other Musculoskeletal: Denies: no symptoms, see HPI, back pain, gout, joint pain, joint swelling, muscle pain, muscle stiffness, other Skin: Reports: other - left buttock abscess 6cm x 4cm Psychiatric: Denies: no symptoms, see HPI, prior hx, anxiety, depressed feelings, emotional problems, SI, HI, hallucinations, other Neurological: Denies: no symptoms, see HPI, headache, numbness, paresthesia, seizure, tingling, tremors, focal weakness, syncope, dizziness, other Endocrine: Denies: no symptoms, see HPI, excessive sweating, flushing, intolerance to temperature, increased thirst, increased urine, unexplained weight loss, other Hematologic/Lymphatic: Denies: no symptoms, see HPI, anemia, blood clots, easy bleeding, easy bruising, swollen glands, diathesis, other Physical Exam General Appearance: no apparent distress, alert Lines, tubes and drains: peripheral HEENT: normocephalic, mucous membranes moist, PERRL Neck: normal inspection Respiratory/Chest: normal breath sounds, no respiratory distress, no accessory muscle use Cardiovascular/Chest: normal peripheral pulses Abdomen: normal bowel sounds, non tender, soft, no organomegaly, no mass Extremities: non-tender, normal inspection Skin Exam: other - 6cm x 4cm left buttock abscess with spontaneous drainage of purulent material from area of fluctuance. surrounding cellulitis. tender on exam. Neurologic: alert, oriented x 3 Last 24 Hour Vital Signs Date Time Temp Pulse Resp B/P (MAP) Pulse Ox O2 Delivery O2 Flow Rate FiO2 09/26/17 08:29 97.0 84 24 112/66 96 Room Air 09/26/17 07:55 98.1 92 20 146/82 98 Room Air 09/26/17 06:34 98.1 92 20 146/82 98 Room Air 09/26/17 05:35 98.1 92 20 146/82 98 Room Air Laboratory Tests Test 09/26/17 06:00 White Blood Count 8.7 K/UL (4.8-10.8) Red Blood Count 4.42 M/UL (4.70-6.10) L Hemoglobin 14.2 G/DL (14.2-18.0) Hematocrit 42.3 % (42.0-52.0) Mean Corpuscular Volume 96 FL (80-99) Mean Corpuscular Hemoglobin 32.2 PG (27.0-31.0) H Mean Corpuscular Hemoglobin Concent 33.6 G/DL (32.0-36.0) Red Cell Distribution Width 11.8 % (11.6-14.8) Platelet Count 224 K/UL (150-450) Mean Platelet Volume 6.1 FL (6.5-10.1) L Neutrophils (%) (Auto) 67.4 % (45.0-75.0) Lymphocytes (%) (Auto) 18.8 % (20.0-45.0) L Monocytes (%) (Auto) 11.8 % (1.0-10.0) H Eosinophils (%) (Auto) 1.2 % (0.0-3.0) Basophils (%) (Auto) 0.8 % (0.0-2.0) Prothrombin Time 10.3 SEC (9.30-11.50) Prothromb Time International Ratio 1.0 (0.9-1.1) Activated Partial Thromboplast Time 31 SEC (23-33) Sodium Level 135 MMOL/L (136-145) L Potassium Level 4.1 MMOL/L (3.5-5.1) Chloride Level 99 MMOL/L (98-107) Carbon Dioxide Level 30 MMOL/L (21-32) Anion Gap 6 mmol/L (5-15) Blood Urea Nitrogen 8 mg/dL (7-18) Creatinine 0.9 MG/DL (0.55-1.30) Estimat Glomerular Filtration Rate > 60 mL/min (>60) Glucose Level 76 MG/DL (74-106) Calcium Level 8.7 MG/DL (8.5-10.1) Total Bilirubin 0.5 MG/DL (0.2-1.0) Aspartate Amino Transf (AST/SGOT) 18 U/L (15-37) Alanine Aminotransferase (ALT/SGPT) 17 U/L (12-78) Alkaline Phosphatase 53 U/L (46-116) Total Protein 8.0 G/DL (6.4-8.2) Albumin 3.3 G/DL (3.4-5.0) L Globulin 4.7 g/dL Albumin/Globulin Ratio 0.7 (1.0-2.7) L Height (Feet): 6 Height (Inches): 2.00 Weight (Pounds): 140 Medications Current Medications Medications (Trade) Dose Ordered Sig/Petrona Route PRN Reason Start Time Stop Time Status Last Admin Dose Admin Acetaminophen (Tylenol) 650 mg Q4H PRN ORAL fever 09/26/17 06:30 10/26/17 06:29 Albuterol/ Ipratropium (Albuterol/ Ipratropium) 3 ml EVERY 4 HOURS PRN HHN Shortness of Breath 09/26/17 06:30 10/01/17 06:29 Cefepime HCl 2 gm/ Dextrose 110 ml @ 220 mls/hr EVERY 12 HOURS IV 09/26/17 09:00 10/03/17 08:59 Dextrose (Dextrose 50%) STAT PRN IV Hypoglycemia 09/26/17 06:30 10/26/17 06:29 Heparin Sodium (Porcine) (Heparin 5000 units/ml) 5,000 units EVERY 12 HOURS SUBQ 09/26/17 09:00 10/26/17 08:59 Nitroglycerin (Ntg) 0.4 mg Every 5 minutes PRN SL Prn Chest Pain 09/26/17 06:30 10/26/17 06:29 Ondansetron HCl (Zofran) 4 mg Q6H PRN IVP Nausea & Vomiting 09/26/17 06:30 10/26/17 06:29 Polyethylene Glycol (Miralax) 17 gm DAILYPRN PRN ORAL Constipation 09/26/17 06:30 10/26/17 06:29 Temazepam (Restoril) 15 mg HSPRN PRN ORAL Insomnia 09/26/17 06:30 10/03/17 06:29 Vancomycin HCl/ Dextrose 250 ml @ 166.667 mls/hr Q12H IVPB 09/26/17 10:00 10/01/17 09:59 Assessment/Plan Problem List: (1) Left buttock abscess Assessment & Plan: 37M left buttock abscess. Afebrile, HD stable, no leukocytosis, labs okay, on exam has 6cm x 4cm left buttock abscess with spontaneous drainage of pus. Recommend I&D to properly evacuate and clean abscess After long discussion with patient, decision made to proceed with I&D at bedside. Consent obtained. -will obtain items required for I&D and perform at bedside today thank you for this consultation. ICD Codes: L02.31 - Cutaneous abscess of buttock SNOMED: 06953973 Status: stable Kuldeep Herring Sep 26, 2017 09:15
[2017-09-26] MEDS ORDERED: Lidocaine 1% 10mg/ml/Epi 0.005mg/ml 30ml vial INJ ONE (09:45)
[2017-09-26] MEDS: Vancomycin 1250mg/D5W 250ml IVPB SCH ×2 (10:24→21:33)
[2017-09-26 12:00] VITALS: BP 117/74
--- NOTE | 2017-09-26 12:37 | Operative Note - PDOC ---
Operative Note Operative Note Date of Operation/Procedure: Sep 26, 2017 Pre-op Diagnosis: left buttock abscess 6cm x 4cm Procedure: incision and drainage of left buttock abscess Post-op Diagnosis: same as pre-op Surgeon: urmila matos Anesthesia: local Specimen: yes - cultures taken Complications: none Condition: stable Fluids: n/a Estimated Blood Loss: minimal Drains: none Packing: plain iodofoam packing and dressings Implant(s) used?: No Indications for Procedure 37M with large 6cm x 4cm left buttock abscess. Recommend I&D and procedure indicated. Please refer to consult note for details. Consent obtained for bedside procedure. Description of Procedure Patient made comfortable at bedside. Pre procedure time out was taken identifying the patient, procedure, and staff. All equipment was available in room. LEFT buttock was cleaned, prepped and draped in standard surgical fashion. 1%lido with epi was infiltrated in proposed skin site at area of maximum fluctuance. Using fresh #11 scalpel a cruciate skin incision was made. 5-10cc purulent fluid evacuated and some sent for cultures. wound explored and then cleaned with sterile normal saline. once complete and clean packing and dressings were applied. patient tolerated procedure well. Kuldeep Herring Sep 26, 2017 12:37
[2017-09-26] MEDS: Norco 5mg/325mg tab ORAL PRN ×2 (14:56→21:32)
[2017-09-26 15:49] VITALS: BP 140/90
--- NOTE | 2017-09-26 17:46 | History and Physical ---
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 He also complains about green diarrhea. There is no blood. He also has an abscess in his left buttocks that's been enlarging over the last several days.. Pt left AMA yesterday to come back early this morning. Allergies: Coded Allergies: SULFA (SULFONAMIDE ANTIBIOTICS) (Verified Allergy, Unknown, 09/24/17) Medication History Scheduled Albuterol Sulfate* (Proair Hfa*), 2 PUFFS INH Q6H, (Reported) Patient History Healthcare decision maker Resuscitation status Full Code Advanced Directive on File Past Medical/Surgical History Past Medical/Surgical History: (1) HIV disease Review of Systems All Other Systems: negative except mentioned in HPI Physical Exam General Appearance: cachetic Lines, tubes and drains: peripheral HEENT: normocephalic, atraumatic Neck: non-tender, normal alignment Respiratory/Chest: chest wall non-tender, lungs clear Breasts: no masses Cardiovascular/Chest: normal peripheral pulses Abdomen: normal bowel sounds Last 24 Hour Vital Signs Date Time Temp Pulse Resp B/P (MAP) Pulse Ox O2 Delivery O2 Flow Rate FiO2 09/26/17 15:55 98.1 09/26/17 15:49 98.1 97 18 140/90 100 Room Air 09/26/17 13:21 99.0 09/26/17 12:20 76 18 Room Air 21 09/26/17 12:00 97.0 72 22 117/74 97 Room Air 09/26/17 08:29 97.0 84 24 112/66 96 Room Air 09/26/17 07:55 98.1 92 20 146/82 98 Room Air 09/26/17 06:34 98.1 92 20 146/82 98 Room Air 09/26/17 05:35 98.1 92 146/82 98 Room Air Laboratory Tests Test 09/26/17 06:00 White Blood Count 8.7 K/UL (4.8-10.8) Red Blood Count 4.42 M/UL (4.70-6.10) L Hemoglobin 14.2 G/DL (14.2-18.0) Hematocrit 42.3 % (42.0-52.0) Mean Corpuscular Volume 96 FL (80-99) Mean Corpuscular Hemoglobin 32.2 PG (27.0-31.0) H Mean Corpuscular Hemoglobin Concent 33.6 G/DL (32.0-36.0) Red Cell Distribution Width 11.8 % (11.6-14.8) Platelet Count 224 K/UL (150-450) Mean Platelet Volume 6.1 FL (6.5-10.1) L Neutrophils (%) (Auto) 67.4 % (45.0-75.0) Lymphocytes (%) (Auto) 18.8 % (20.0-45.0) L Monocytes (%) (Auto) 11.8 % (1.0-10.0) H Eosinophils (%) (Auto) 1.2 % (0.0-3.0) Basophils (%) (Auto) 0.8 % (0.0-2.0) Prothrombin Time 10.3 SEC (9.30-11.50) Prothromb Time International Ratio 1.0 (0.9-1.1) Activated Partial Thromboplast Time 31 SEC (23-33) Sodium Level 135 MMOL/L (136-145) L Potassium Level 4.1 MMOL/L (3.5-5.1) Chloride Level 99 MMOL/L (98-107) Carbon Dioxide Level 30 MMOL/L (21-32) Anion Gap 6 mmol/L (5-15) Blood Urea Nitrogen 8 mg/dL (7-18) Creatinine 0.9 MG/DL (0.55-1.30) Estimat Glomerular Filtration Rate > 60 mL/min (>60) Glucose Level 76 MG/DL (74-106) Calcium Level 8.7 MG/DL (8.5-10.1) Total Bilirubin 0.5 MG/DL (0.2-1.0) Aspartate Amino Transf (AST/SGOT) 18 U/L (15-37) Alanine Aminotransferase (ALT/SGPT) 17 U/L (12-78) Alkaline Phosphatase 53 U/L (46-116) Total Protein 8.0 G/DL (6.4-8.2) Albumin 3.3 G/DL (3.4-5.0) L Globulin 4.7 g/dL Albumin/Globulin Ratio 0.7 (1.0-2.7) L Height (Feet): 6 Height (Inches): 2.00 Weight (Pounds): 140 Medications Current Medications Medications (Trade) Dose Ordered Sig/Petrona Route PRN Reason Start Time Stop Time Status Last Admin Dose Admin Acetaminophen (Tylenol) 650 mg Q4H PRN ORAL fever 09/26/17 06:30 10/26/17 06:29 09/26/17 12:22 Acetaminophen/ Hydrocodone Bitart ([place] 5/325) 1 tab Q6H PRN ORAL For Pain 09/26/17 14:15 10/03/17 14:14 09/26/17 14:56 Albuterol/ Ipratropium (Albuterol/ Ipratropium) 3 ml EVERY 4 HOURS PRN HHN Shortness of Breath 09/26/17 06:30 10/01/17 06:29 Dextrose (Dextrose 50%) STAT PRN IV Hypoglycemia 09/26/17 06:30 10/26/17 06:29 Heparin Sodium (Porcine) (Heparin 5000 units/ml) 5,000 units EVERY 12 HOURS SUBQ 09/26/17 09:00 10/26/17 08:59 Levofloxacin 150 ml @ 100 mls/hr Q24H IVPB 09/26/17 11:30 10/03/17 11:29 09/26/17 12:15 Nitroglycerin (Ntg) 0.4 mg Every 5 minutes PRN SL Prn Chest Pain 09/26/17 06:30 10/26/17 06:29 Ondansetron HCl (Zofran) 4 mg Q6H PRN IVP Nausea & Vomiting 09/26/17 06:30 10/26/17 06:29 Polyethylene Glycol (Miralax) 17 gm DAILYPRN PRN ORAL Constipation 09/26/17 06:30 10/26/17 06:29 Temazepam (Restoril) 15 mg HSPRN PRN ORAL Insomnia 09/26/17 06:30 10/03/17 06:29 Vancomycin HCl/ Dextrose 250 ml @ 166.667 mls/hr Q12H IVPB 09/26/17 10:00 10/01/17 09:59 09/26/17 10:24 Assessment/Plan Problem List: (1) HIV disease ICD Codes: B20 - Human immunodeficiency virus [HIV] disease SNOMED: 04741017 (2) Left buttock abscess ICD Codes: L02.31 - Cutaneous abscess of buttock SNOMED: 45314016 Assessment/Plan iv abx surgical evaluation. check labs secondary social studies teacher RAY DAVIDSON Sep 26, 2017 17:46
[2017-09-26 19:33] VITALS: BP 103/57
--- NOTE | 2017-09-26 22:10 | Consultation ---
History of Present Illness General Chief Complaint: Skin Rash/Abscess Reason for Consultation: left buttock abscess Present Illness HPI 37M with history of HIV no currently on any antivirals or treatment presented with left buttock abscess. the pt left the hospital ama. the pt was anxious and irritable during the eval the pt is having poor insight. Allergies: Coded Allergies: SULFA (SULFONAMIDE ANTIBIOTICS) (Verified Allergy, Unknown, 09/24/17) Medication History Scheduled Albuterol Sulfate* (Proair Hfa*), 2 PUFFS INH Q6H, (Reported) Patient History History Provided By: Patient, Medical Record, PMD Healthcare decision maker Resuscitation status Full Code Advanced Directive on File Past Medical/Surgical History Past Medical/Surgical History: (1) HIV disease (2) Purulent bronchitis (3) Left buttock abscess Review of Systems Psychiatric: Reports: prior hx, anxiety, depressed feelings, emotional problems Physical Exam General Appearance: no apparent distress, alert Neurologic: alert, oriented x 3, responsive, depressed affect Last 24 Hour Vital Signs Date Time Temp Pulse Resp B/P (MAP) Pulse Ox O2 Delivery O2 Flow Rate FiO2 09/26/17 19:33 98.1 60 18 103/57 98 Room Air 09/26/17 15:55 98.1 09/26/17 15:49 98.1 97 18 140/90 100 Room Air 09/26/17 13:21 99.0 09/26/17 12:20 76 18 Room Air 21 09/26/17 12:00 97.0 72 22 117/74 97 Room Air 09/26/17 08:29 97.0 84 24 112/66 96 Room Air 09/26/17 07:55 98.1 92 20 146/82 98 Room Air 09/26/17 06:34 98.1 92 20 146/82 98 Room Air 09/26/17 05:35 98.1 92 20 146/82 98 Room Air Intake and Output 09/26/17 09/27/17 19:00 07:00 Intake Total 240 ml Balance 240 ml Intake Oral 240 ml Laboratory Tests Test 09/26/17 06:00 White Blood Count 8.7 K/UL (4.8-10.8) Red Blood Count 4.42 M/UL (4.70-6.10) L Hemoglobin 14.2 G/DL (14.2-18.0) Hematocrit 42.3 % (42.0-52.0) Mean Corpuscular Volume 96 FL (80-99) Mean Corpuscular Hemoglobin 32.2 PG (27.0-31.0) H Mean Corpuscular Hemoglobin Concent 33.6 G/DL (32.0-36.0) Red Cell Distribution Width 11.8 % (11.6-14.8) Platelet Count 224 K/UL (150-450) Mean Platelet Volume 6.1 FL (6.5-10.1) L Neutrophils (%) (Auto) 67.4 % (45.0-75.0) Lymphocytes (%) (Auto) 18.8 % (20.0-45.0) L Monocytes (%) (Auto) 11.8 % (1.0-10.0) H Eosinophils (%) (Auto) 1.2 % (0.0-3.0) Basophils (%) (Auto) 0.8 % (0.0-2.0) Prothrombin Time 10.3 SEC (9.30-11.50) Prothromb Time International Ratio 1.0 (0.9-1.1) Activated Partial Thromboplast Time 31 SEC (23-33) Sodium Level 135 MMOL/L (136-145) L Potassium Level 4.1 MMOL/L (3.5-5.1) Chloride Level 99 MMOL/L (98-107) Carbon Dioxide Level 30 MMOL/L (21-32) Anion Gap 6 mmol/L (5-15) Blood Urea Nitrogen 8 mg/dL (7-18) Creatinine 0.9 MG/DL (0.55-1.30) Estimat Glomerular Filtration Rate > 60 mL/min (>60) Glucose Level 76 MG/DL (74-106) Calcium Level 8.7 MG/DL (8.5-10.1) Total Bilirubin 0.5 MG/DL (0.2-1.0) Aspartate Amino Transf (AST/SGOT) 18 U/L (15-37) Alanine Aminotransferase (ALT/SGPT) 17 U/L (12-78) Alkaline Phosphatase 53 U/L (46-116) Total Protein 8.0 G/DL (6.4-8.2) Albumin 3.3 G/DL (3.4-5.0) L Globulin 4.7 g/dL Albumin/Globulin Ratio 0.7 (1.0-2.7) L Height (Feet): 6 Height (Inches): 2.00 Weight (Pounds): 140 Medications Current Medications Medications (Trade) Dose Ordered Sig/Petrona Route PRN Reason Start Time Stop Time Status Last Admin Dose Admin Acetaminophen (Tylenol) 650 mg Q4H PRN ORAL fever 09/26/17 06:30 10/26/17 06:29 09/26/17 20:27 Acetaminophen/ Hydrocodone Bitart ([place] 5/325) 1 tab Q6H PRN ORAL For Pain 09/26/17 14:15 10/03/17 14:14 09/26/17 21:32 Albuterol/ Ipratropium (Albuterol/ Ipratropium) 3 ml EVERY 4 HOURS PRN HHN Shortness of Breath 09/26/17 06:30 10/01/17 06:29 Dextrose (Dextrose 50%) STAT PRN IV Hypoglycemia 09/26/17 06:30 10/26/17 06:29 Heparin Sodium (Porcine) (Heparin 5000 units/ml) 5,000 units EVERY 12 HOURS SUBQ 09/26/17 09:00 10/26/17 08:59 09/26/17 20:28 Levofloxacin 150 ml @ 100 mls/hr Q24H IVPB 09/26/17 11:30 10/03/17 11:29 09/26/17 12:15 Nitroglycerin (Ntg) 0.4 mg Every 5 minutes PRN SL Prn Chest Pain 09/26/17 06:30 10/26/17 06:29 Ondansetron HCl (Zofran) 4 mg Q6H PRN IVP Nausea & Vomiting 09/26/17 06:30 10/26/17 06:29 Polyethylene Glycol (Miralax) 17 gm DAILYPRN PRN ORAL Constipation 09/26/17 06:30 10/26/17 06:29 Temazepam (Restoril) 15 mg HSPRN PRN ORAL Insomnia 09/26/17 06:30 10/03/17 06:29 Vancomycin HCl/ Dextrose 250 ml @ 166.667 mls/hr Q12H IVPB 09/26/17 10:00 10/01/17 09:59 09/26/17 21:33 Assessment/Plan Status: stable Assessment/Plan anxiety d/o noncompliance lexapro 10mg Wali Yousif M.D. Sep 26, 2017 22:10
[2017-09-26 23:38] VITALS: BP 102/71
[2017-09-27] MEDS ORDERED: Vancomycin 1 GM in D5W 275 ML IV SCH (00:30)
[2017-09-27 03:56] VITALS: BP 106/61
[2017-09-27 06:28] LABS: BASOPHILS % (AUTO) 0.4 % (0.0-2.0); EOSINOPHILS % (AUTO) 2.2 % (0.0-3.0); LYMPHOCYTES % (AUTO) 21.2 % (20.0-45.0); MEAN CORPUSCULAR HEMOGLOBIN 31.1 PG (27.0-31.0); MEAN CORPUSCULAR HGB CONC 32.5 G/DL (32.0-36.0); MEAN CORPUSCULAR VOLUME 96 FL (80-99); MEAN PLATELET VOLUME 5.9 FL (6.5-10.1); MONOCYTES % (AUTO) 14.5 % (1.0-10.0); NEUTROPHILS % (AUTO) 61.8 % (45.0-75.0); PLATELET COUNT 255 K/UL (150-450); RED CELL DISTRIBUTION WIDTH 12.1 % (11.6-14.8); WHITE BLOOD COUNT 5.9 K/UL (4.8-10.8)
[2017-09-27 07:01] LABS: ALANINE AMINOTRANSFERASE 16 U/L (12-78); ALBUMIN/GLOBULIN RATIO 0.6 (1.0-2.7); ANION GAP 3 mmol/L (5-15); ASPARTATE AMINO TRANSFERASE 16 U/L (15-37); CALCIUM 9.2 MG/DL (8.5-10.1); CARBON DIOXIDE 33 MMOL/L (21-32); CHLORIDE 102 MMOL/L (98-107); GLOMERULAR FILTRATION RATE > 60 mL/min (>60); POTASSIUM 4.6 MMOL/L (3.5-5.1); SODIUM 138 MMOL/L (136-145); TOTAL PROTEIN 8.4 G/DL (6.4-8.2)
[2017-09-27 08:00] VITALS: BP 112/68
[2017-09-27] MEDS: Heparin 5000 units/ml inj SUBQ SCH ×2 (08:42→23:32)
[2017-09-27] MEDS: Norco 5mg/325mg tab ORAL PRN (09:11)
[2017-09-27] MEDS: Vancomycin 1250mg/D5W 250ml IVPB SCH (09:13)
--- NOTE | 2017-09-27 10:27 | Infectious Diseases Prog Note ---
Assessment/Plan Assessment/Plan A: ASSESSMENT: The patient is a 37-year-old male with Fever, SP Bronchitis. Human immunodeficiency virus off of medication, unknown CD4 count. Left buttock abscess mostly due to Staphylococcus aureus. WndCx: P ( gram stain GPC ) SP I& D 09/26 History of drug abuse. History of alcohol abuse. Rule out sexually transmitted disease. RPR, GC : Neg History of cardiac disease and irregular heartbeat. Hypertension. Asthma. Bronchitis PLAN: continue the patient on vancomycin d# 3 and Levaquin. d# 2 / 5 Monitor CBC. Monitor BMP. CD4 count: P ( recent prior admission ) chlamydia with screening. Monitor cultures (Wnd ). Subjective Constitutional: Denies: no symptoms, fever, chills, fatigue, anorexia, drenching sweats, other Allergies: Coded Allergies: SULFA (SULFONAMIDE ANTIBIOTICS) (Verified Allergy, Unknown, 09/24/17) Objective Vital Signs Last 24 Hour Vital Signs Date Time Temp Pulse Resp B/P (MAP) Pulse Ox O2 Delivery O2 Flow Rate FiO2 09/27/17 07:57 76 18 Room Air 09/27/17 03:56 97.7 60 18 106/61 97 Room Air 09/26/17 23:38 98.1 65 18 102/71 98 Room Air 09/26/17 19:33 98.1 60 18 103/57 98 Room Air 09/26/17 15:55 98.1 09/26/17 15:49 98.1 97 18 140/90 100 Room Air 09/26/17 13:21 99.0 09/26/17 12:20 76 18 Room Air 21 09/26/17 12:00 97.0 72 22 117/74 97 Room Air Height (Feet): 6 Height (Inches): 2.00 Weight (Pounds): 140 HEENT: mucous membranes moist Respiratory/Chest: normal breath sounds Cardiovascular: regular rhythm Abdomen: no organomegaly Microbiology Date/Time Source Procedure Growth Status 09/26/17 12:25 Wound Gram Stain - Final Resulted 09/26/17 12:25 Wound Wound Culture - Preliminary Resulted Laboratory Tests Test 09/27/17 05:40 White Blood Count 5.9 K/UL (4.8-10.8) Red Blood Count 4.70 M/UL (4.70-6.10) Hemoglobin 14.6 G/DL (14.2-18.0) Hematocrit 45.0 % (42.0-52.0) Mean Corpuscular Volume 96 FL (80-99) Mean Corpuscular Hemoglobin 31.1 PG (27.0-31.0) H Mean Corpuscular Hemoglobin Concent 32.5 G/DL (32.0-36.0) Red Cell Distribution Width 12.1 % (11.6-14.8) Platelet Count 255 K/UL (150-450) Mean Platelet Volume 5.9 FL (6.5-10.1) L Neutrophils (%) (Auto) 61.8 % (45.0-75.0) Lymphocytes (%) (Auto) 21.2 % (20.0-45.0) Monocytes (%) (Auto) 14.5 % (1.0-10.0) H Eosinophils (%) (Auto) 2.2 % (0.0-3.0) Basophils (%) (Auto) 0.4 % (0.0-2.0) Sodium Level 138 MMOL/L (136-145) Potassium Level 4.6 MMOL/L (3.5-5.1) Chloride Level 102 MMOL/L (98-107) Carbon Dioxide Level 33 MMOL/L (21-32) H Anion Gap 3 mmol/L (5-15) L Blood Urea Nitrogen 14 mg/dL (7-18) Creatinine 1.0 MG/DL (0.55-1.30) Estimat Glomerular Filtration Rate > 60 mL/min (>60) Glucose Level 96 MG/DL (74-106) Calcium Level 9.2 MG/DL (8.5-10.1) Total Bilirubin 0.4 MG/DL (0.2-1.0) Aspartate Amino Transf (AST/SGOT) 16 U/L (15-37) Alanine Aminotransferase (ALT/SGPT) 16 U/L (12-78) Alkaline Phosphatase 52 U/L (46-116) Total Protein 8.4 G/DL (6.4-8.2) H Albumin 3.2 G/DL (3.4-5.0) L Globulin 5.2 g/dL Albumin/Globulin Ratio 0.6 (1.0-2.7) L Current Medications Medications (Trade) Dose Ordered Sig/Petrona Route PRN Reason Start Time Stop Time Status Last Admin Dose Admin Acetaminophen (Tylenol) 650 mg Q4H PRN ORAL fever 09/26/17 06:30 10/26/17 06:29 09/26/17 20:27 Acetaminophen/ Hydrocodone Bitart ([place] 5/325) 1 tab Q6H PRN ORAL For Pain 09/26/17 14:15 10/03/17 14:14 09/27/17 09:11 Albuterol/ Ipratropium (Albuterol/ Ipratropium) 3 ml EVERY 4 HOURS PRN HHN Shortness of Breath 09/26/17 06:30 10/01/17 06:29 Dextrose (Dextrose 50%) STAT PRN IV Hypoglycemia 09/26/17 06:30 10/26/17 06:29 Escitalopram Oxalate (Lexapro) 10 mg DAILY ORAL 09/27/17 09:00 10/27/17 08:59 09/27/17 08:35 Heparin Sodium (Porcine) (Heparin 5000 units/ml) 5,000 units EVERY 12 HOURS SUBQ 09/26/17 09:00 10/26/17 08:59 09/27/17 08:42 Levofloxacin 150 ml @ 100 mls/hr Q24H IVPB 09/26/17 11:30 10/03/17 11:29 09/26/17 12:15 Nitroglycerin (Ntg) 0.4 mg Every 5 minutes PRN SL Prn Chest Pain 09/26/17 06:30 10/26/17 06:29 Ondansetron HCl (Zofran) 4 mg Q6H PRN IVP Nausea & Vomiting 09/26/17 06:30 10/26/17 06:29 Polyethylene Glycol (Miralax) 17 gm DAILYPRN PRN ORAL Constipation 09/26/17 06:30 10/26/17 06:29 Temazepam (Restoril) 15 mg HSPRN PRN ORAL Insomnia 09/26/17 06:30 10/03/17 06:29 Vancomycin HCl/ Dextrose 250 ml @ 166.667 mls/hr Q12H IVPB 09/26/17 10:00 10/01/17 09:59 09/27/17 09:13 LYDIA GOODWIN M.D. Sep 27, 2017 10:27
--- NOTE | 2017-09-27 10:46 | General Progress Note ---
Progress Note Progress Note Surgery: patient seen and examined at bedside. no acute events. doing well. comfortable. states pain and pressure in left buttock much improved. afebrile , HD stable, labs okay. left buttock abscess s/p I&D. packing and dressings removed at bedside. wound clean. wound irrigated and new packing and dressings applied. -okay to shower -packing and dressings BID -will monitor wound. - cont x Kuldeep Herring Sep 27, 2017 10:46
[2017-09-27 12:00] VITALS: BP 108/79
--- NOTE | 2017-09-27 12:50 | Pulmonology Progress Note ---
Assessment/Plan Problems: (1) HIV disease (2) Left buttock abscess Assessment/Plan s/p drainage, IV abx wound care f/u By ID Subjective ROS Limited/Unobtainable: No Constitutional: Reports: no symptoms HEENT: Repors: no symptoms Allergies: Coded Allergies: SULFA (SULFONAMIDE ANTIBIOTICS) (Verified Allergy, Unknown, 09/24/17) Objective Last 24 Hour Vital Signs Date Time Temp Pulse Resp B/P (MAP) Pulse Ox O2 Delivery O2 Flow Rate FiO2 09/27/17 08:00 98.8 72 20 112/68 98 Room Air 09/27/17 07:57 76 18 Room Air 21 09/27/17 03:56 97.7 60 18 106/61 97 Room Air 09/26/17 23:38 98.1 65 18 102/71 98 Room Air 09/26/17 19:33 98.1 60 18 103/57 98 Room Air 09/26/17 15:55 98.1 09/26/17 15:49 98.1 97 18 140/90 100 Room Air 09/26/17 13:21 99.0 General Appearance: WD/WN HEENT: normocephalic Respiratory/Chest: chest wall non-tender, no respiratory distress Cardiovascular: normal peripheral pulses, regular rhythm Abdomen: normal bowel sounds Skin: no lesions 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, abnormal gait Microbiology Date/Time Source Procedure Growth Status 09/26/17 12:25 Wound Gram Stain - Final Resulted 09/26/17 12:25 Wound Wound Culture - Preliminary Resulted Laboratory Tests 09/27/17 05:40: White Blood Count 5.9, Red Blood Count 4.70, Hemoglobin 14.6, Hematocrit 45.0, Mean Corpuscular Volume 96, Mean Corpuscular Hemoglobin 31.1H, Mean Corpuscular Hemoglobin Concent 32.5, Red Cell Distribution Width 12.1, Platelet Count 255, Mean Platelet Volume 5.9L, Neutrophils (%) (Auto) 61.8, Lymphocytes (%) (Auto) 21.2, Monocytes (%) (Auto) 14.5H, Eosinophils (%) (Auto) 2.2, Basophils (%) ( Auto) 0.4, Sodium Level 138, Potassium Level 4.6, Chloride Level 102, Carbon Dioxide Level 33H, Anion Gap 3L, Blood Urea Nitrogen 14, Creatinine 1.0, Estimat Glomerular Filtration Rate > 60, Glucose Level 96, Calcium Level 9.2, Total Bilirubin 0.4, Aspartate Amino Transf (AST/SGOT) 16, Alanine Aminotransferase (ALT/SGPT) 16, Alkaline Phosphatase 52, Total Protein 8.4H, Albumin 3.2L, Globulin 5.2, Albumin/Globulin Ratio 0.6L Current Medications Medications (Trade) Dose Ordered Sig/Petrona Route PRN Reason Start Time Stop Time Status Last Admin Dose Admin Acetaminophen (Tylenol) 650 mg Q4H PRN ORAL fever 09/26/17 06:30 10/26/17 06:29 09/26/17 20:27 Acetaminophen/ Hydrocodone Bitart ([place] 5/325) 1 tab Q6H PRN ORAL For Pain 09/26/17 14:15 10/03/17 14:14 09/27/17 09:11 Albuterol/ Ipratropium (Albuterol/ Ipratropium) 3 ml EVERY 4 HOURS PRN HHN Shortness of Breath 09/26/17 06:30 10/01/17 06:29 Dextrose (Dextrose 50%) STAT PRN IV Hypoglycemia 09/26/17 06:30 10/26/17 06:29 Escitalopram Oxalate (Lexapro) 10 mg DAILY ORAL 09/27/17 09:00 10/27/17 08:59 09/27/17 08:35 Heparin Sodium (Porcine) (Heparin 5000 units/ml) 5,000 units EVERY 12 HOURS SUBQ 09/26/17 09:00 10/26/17 08:59 09/27/17 08:42 Levofloxacin 150 ml @ 100 mls/hr Q24H IVPB 09/26/17 11:30 10/03/17 11:29 09/26/17 12:15 Nitroglycerin (Ntg) 0.4 mg Every 5 minutes PRN SL Prn Chest Pain 09/26/17 06:30 10/26/17 06:29 Ondansetron HCl (Zofran) 4 mg Q6H PRN IVP Nausea & Vomiting 09/26/17 06:30 10/26/17 06:29 Polyethylene Glycol (Miralax) 17 gm DAILYPRN PRN ORAL Constipation 09/26/17 06:30 10/26/17 06:29 Temazepam (Restoril) 15 mg HSPRN PRN ORAL Insomnia 09/26/17 06:30 10/03/17 06:29 Vancomycin HCl/ Dextrose 250 ml @ 166.667 mls/hr Q12H IVPB 09/26/17 10:00 10/01/17 09:59 09/27/17 09:13 RAY DAVIDSON Sep 27, 2017 12:50
[2017-09-27 16:00] VITALS: BP 119/65
[2017-09-27] MEDS ORDERED: Promethazine/Codeine 5ml UD ORAL PRN (18:00)
[2017-09-27 19:56] VITALS: BP 133/66
[2017-09-27] MEDS: Vancomycin 1.5gm/D5W 250ml 250 ML IVPB SCH (23:13)
--- NOTE | 2017-09-27 23:14 | General Progress Note ---
Assessment/Plan Status: stable, progressing Assessment/Plan anxiety d/o cont current meds Subjective Neurologic/Psychiatric: Reports: anxiety, depressed, emotional problems Allergies: Coded Allergies: SULFA (SULFONAMIDE ANTIBIOTICS) (Verified Allergy, Unknown, 09/24/17) Objective Last 24 Hour Vital Signs Date Time Temp Pulse Resp B/P (MAP) Pulse Ox O2 Delivery O2 Flow Rate FiO2 09/27/17 19:56 84 18 133/66 97 Room Air 09/27/17 16:00 98.4 69 18 119/65 98 Room Air 09/27/17 12:00 98.2 68 18 108/79 96 Room Air 09/27/17 08:00 98.8 72 20 112/68 98 Room Air 09/27/17 07:57 76 18 Room Air 21 09/27/17 03:56 97.7 60 18 106/61 97 Room Air 09/26/17 23:38 98.1 65 18 102/71 98 Room Air Laboratory Tests 09/27/17 05:40: White Blood Count 5.9, Red Blood Count 4.70, Hemoglobin 14.6, Hematocrit 45.0, Mean Corpuscular Volume 96, Mean Corpuscular Hemoglobin 31.1H, Mean Corpuscular Hemoglobin Concent 32.5, Red Cell Distribution Width 12.1, Platelet Count 255, Mean Platelet Volume 5.9L, Neutrophils (%) (Auto) 61.8, Lymphocytes (%) (Auto) 21.2, Monocytes (%) (Auto) 14.5H, Eosinophils (%) (Auto) 2.2, Basophils (%) ( Auto) 0.4, Sodium Level 138, Potassium Level 4.6, Chloride Level 102, Carbon Dioxide Level 33H, Anion Gap 3L, Blood Urea Nitrogen 14, Creatinine 1.0, Estimat Glomerular Filtration Rate > 60, Glucose Level 96, Calcium Level 9.2, Total Bilirubin 0.4, Aspartate Amino Transf (AST/SGOT) 16, Alanine Aminotransferase (ALT/SGPT) 16, Alkaline Phosphatase 52, Total Protein 8.4H, Albumin 3.2L, Globulin 5.2, Albumin/Globulin Ratio 0.6L 09/27/17 21:00: Vancomycin Level Trough 5.2 Height (Feet): 6 Height (Inches): 2.00 Weight (Pounds): 140 General Appearance: no apparent distress, alert Neurologic: alert, oriented x 3, responsive, depressed affect Wali Reese M.D. Sep 27, 2017 23:14
[2017-09-28] VITALS: BP 114/70
[2017-09-28 04:00] VITALS: BP 102/54
[2017-09-28 09:01] VITALS: BP 111/72
[2017-09-28] MEDS: Norco 5mg/325mg tab ORAL PRN (09:10)
[2017-09-28] MEDS: Heparin 5000 units/ml inj SUBQ SCH (09:15)
--- NOTE | 2017-09-28 10:18 | Infectious Diseases Prog Note ---
Assessment/Plan Assessment/Plan ASSESSMENT: The patient is a 37-year-old male with Left buttock abscess - SP I& D 09/26 - WCx S.aureus ( sensi pending ) Bronchitis Human immunodeficiency virus off of medication, unknown CD4 count. Fever - resolved, no leukocytosis History of drug abuse. History of alcohol abuse. Rule out sexually transmitted disease. RPR, GC : Neg History of cardiac disease and irregular heartbeat. Hypertension. Asthma. Sulfa allergy Full Code PLAN: continue vancomycin d# 4 and Levaquin. d# 3 / 5 f/u final cultures Monitor CBC, temperatures Monitor BMP. CD4 count: P ( recent prior admission ) wound care Subjective Allergies: Coded Allergies: SULFA (SULFONAMIDE ANTIBIOTICS) (Verified Allergy, Unknown, 09/24/17) Subjective remains afebrile without leukocytosis Cx S.aureus sensi pending Objective Vital Signs Last 24 Hour Vital Signs Date Time Temp Pulse Resp B/P (MAP) Pulse Ox O2 Delivery O2 Flow Rate FiO2 09/28/17 09:01 98.1 76 20 111/72 98 Room Air 09/28/17 07:30 79 16 Room Air 21 09/28/17 04:00 97.9 64 18 102/54 99 Room Air 09/28/17 00:00 98.6 69 20 114/70 98 Room Air 09/27/17 19:56 84 18 133/66 97 Room Air 09/27/17 16:00 98.4 69 18 119/65 98 Room Air 09/27/17 12:00 98.2 68 18 108/79 96 Room Air Height (Feet): 6 Height (Inches): 2.00 Weight (Pounds): 140 General Appearance: no acute distress Respiratory/Chest: no respiratory distress Cardiovascular: normal rate, regular rhythm Abdomen: normal bowel sounds, soft, non tender, non distended Skin: other - wound bandaged Microbiology Date/Time Source Procedure Growth Status 09/26/17 06:20 Blood Not Otherwise Specified Blood Culture - Preliminary NO GROWTH AFTER 24 HOURS Resulted 09/26/17 06:00 Blood Not Otherwise Specified Blood Culture - Preliminary NO GROWTH AFTER 24 HOURS Resulted 09/26/17 12:25 Wound Gram Stain - Final Resulted 09/26/17 12:25 Wound Culture - Preliminary Staphylococcus Aureus Resulted 09/26/17 07:30 Rectum VRE Culture - Final NO VANCOMYCIN RESISTANT ENTEROCOCCUS ... Complete Laboratory Tests Test 09/27/17 21:00 Vancomycin Level Trough 5.2 ug/mL (5.0-12.0) Current Medications Medications (Trade) Dose Ordered Sig/Petrona Route PRN Reason Start Time Stop Time Status Last Admin Dose Admin Acetaminophen (Tylenol) 650 mg Q4H PRN ORAL fever 09/26/17 06:30 10/26/17 06:29 09/26/17 20:27 Acetaminophen/ Hydrocodone Bitart ([place] 5/325) 1 tab Q6H PRN ORAL For Pain 09/26/17 14:15 10/03/17 14:14 09/28/17 09:10 Albuterol/ Ipratropium (Albuterol/ Ipratropium) 3 ml EVERY 4 HOURS PRN HHN Shortness of Breath 09/26/17 06:30 10/01/17 06:29 Dextrose (Dextrose 50%) STAT PRN IV Hypoglycemia 09/26/17 06:30 10/26/17 06:29 Escitalopram Oxalate (Lexapro) 10 mg DAILY ORAL 09/27/17 09:00 10/27/17 08:59 09/28/17 09:10 Heparin Sodium (Porcine) (Heparin 5000 units/ml) 5,000 units EVERY 12 HOURS SUBQ 09/26/17 09:00 10/26/17 08:59 09/28/17 09:15 Levofloxacin 150 ml @ 100 mls/hr Q24H IVPB 09/26/17 11:30 10/03/17 11:29 09/27/17 12:30 Nitroglycerin (Ntg) 0.4 mg Every 5 minutes PRN SL Prn Chest Pain 09/26/17 06:30 10/26/17 06:29 Ondansetron HCl (Zofran) 4 mg Q6H PRN IVP Nausea & Vomiting 09/26/17 06:30 10/26/17 06:29 Polyethylene Glycol (Miralax) 17 gm DAILYPRN PRN ORAL Constipation 09/26/17 06:30 10/26/17 06:29 Promethazine HCl/ Codeine (Phenergan with Codeine) 5 ml Q6H PRN ORAL For Cough 09/27/17 18:00 10/27/17 17:59 Temazepam (Restoril) 15 mg HSPRN PRN ORAL Insomnia 09/26/17 06:30 10/03/17 06:29 Vancomycin HCl (Vanco rx to dose) 1 ea DAILY PRN MISC PER RX PROTOCOL 09/27/17 18:00 10/27/17 17:59 Vancomycin HCl/ Dextrose 250 ml @ 125 mls/hr Q12HR@1100,2300 IVPB 09/27/17 23:00 10/02/17 22:59 09/27/17 23:13 YE GROSS Sep 28, 2017 10:18
--- NOTE | 2017-09-28 11:35 | General Progress Note ---
Progress Note Progress Note Surgery: patient seen and examined at bedside. no acute events. doing very well. minimal pain. no n/v/f/c. minimal drainage from wound. states wound feels much better. Afebrile, HD stable, exam benign left buttock wound dressings removed and wound evaluated. wound healing very well. erythema, edema, cellulitis resolving. minimal serous drainage. -dressings BID and PRN -shower daily and after BM's -okay to d/c from surgical standpoint follow up with me in 1-2 weeks Kuldeep Herring Sep 28, 2017 11:35
[2017-09-28 12:00] VITALS: BP 110/71
[2017-09-28] MEDS: Vancomycin 1.5gm/D5W 250ml 250 ML IVPB SCH (14:39)
[2017-09-28 16:00] VITALS: BP 124/74
--- NOTE | 2017-09-28 16:50 | Diagnostic Imaging Report ---
APPROVED REPORT CPT Code: 96376 Present Symptoms Comments: R/O DVT BILATERAL: Imaging reveals a patent deep venous system bilaterally. There is no evidence of thrombus within the femoral, popliteal or tibial segments. The greater saphenous veins are also within normal limits. Doppler indicates normal spontaneous flow within these segments. Incidental findings: An enlarged lymph node noted in the left superficial femoral vein area measures (2.4 cm x 0.8 cm).
--- NOTE | 2017-09-28 18:12 | Pulmonology Progress Note ---
Assessment/Plan Problems: (1) HIV disease (2) Left buttock abscess Assessment/Plan s/p drainage, IV abx wound care f/u By ID pt wants to go home, prescription for Bactrim given. Subjective ROS Limited/Unobtainable: No Constitutional: Reports: no symptoms HEENT: Repors: no symptoms Respiratory: Reports: no symptoms Allergies: Coded Allergies: SULFA (SULFONAMIDE ANTIBIOTICS) (Verified Allergy, Unknown, 09/24/17) Objective Last 24 Hour Vital Signs Date Time Temp Pulse Resp B/P (MAP) Pulse Ox O2 Delivery O2 Flow Rate FiO2 09/28/17 16:00 97.8 18 124/74 99 Room Air 09/28/17 12:00 98.1 72 20 110/71 98 Room Air 09/28/17 09:01 98.1 76 20 111/72 98 Room Air 09/28/17 07:30 79 16 Room Air 21 09/28/17 04:00 97.9 64 18 102/54 99 Room Air 09/28/17 00:00 98.6 69 20 114/70 98 Room Air 09/27/17 19:56 84 18 133/66 97 Room Air Intake and Output 09/28/17 09/29/17 19:00 07:00 Intake Total 275 ml Balance 275 ml IV Total 275 ml General Appearance: WD/WN HEENT: normocephalic, atraumatic Respiratory/Chest: chest wall non-tender, lungs clear Cardiovascular: normal peripheral pulses, normal rate Abdomen: normal bowel sounds, soft, non tender Genitourinary: normal external genitalia Extremities: no cyanosis Skin: no rash Neurologic/Psychiatric: no motor/sensory deficits Microbiology Date/Time Source Procedure Growth Status 09/26/17 06:20 Blood Not Otherwise Specified Blood Culture - Preliminary NO GROWTH AFTER 24 HOURS Resulted 09/26/17 06:00 Blood Not Otherwise Specified Blood Culture - Preliminary NO GROWTH AFTER 24 HOURS Resulted 09/26/17 12:25 Wound Gram Stain - Final Resulted 09/26/17 12:25 Wound Culture - Preliminary Staphylococcus Aureus Resulted 09/26/17 07:30 Nasal Nares MRSA Culture - Final NO METHICILLIN RESISTANT STAPH AUREUS... Complete 09/26/17 07:30 Rectum VRE Culture - Final NO VANCOMYCIN RESISTANT ENTEROCOCCUS ... Complete Laboratory Tests 09/27/17 21:00: Vancomycin Level Trough 5.2 Current Medications Medications (Trade) Dose Ordered Sig/Petrona Route PRN Reason Start Time Stop Time Status Last Admin Dose Admin Acetaminophen (Tylenol) 650 mg Q4H PRN ORAL fever 09/26/17 06:30 10/26/17 06:29 09/26/17 20:27 Acetaminophen/ Hydrocodone Bitart (Faber 5/325) 1 tab Q6H PRN ORAL For Pain 09/26/17 14:15 10/03/17 14:14 09/28/17 09:10 Albuterol/ Ipratropium (Albuterol/ Ipratropium) 3 ml EVERY 4 HOURS PRN HHN Shortness of Breath 09/26/17 06:30 10/01/17 06:29 Dextrose (Dextrose 50%) STAT PRN IV Hypoglycemia 09/26/17 06:30 10/26/17 06:29 Escitalopram Oxalate (Lexapro) 10 mg DAILY ORAL 09/27/17 09:00 10/27/17 08:59 09/28/17 09:10 Heparin Sodium (Porcine) (Heparin 5000 units/ml) 5,000 units EVERY 12 HOURS SUBQ 09/26/17 09:00 10/26/17 08:59 09/28/17 09:15 Levofloxacin 150 ml @ 100 mls/hr Q24H IVPB 09/26/17 11:30 10/03/17 11:29 09/28/17 11:41 Nitroglycerin (Ntg) 0.4 mg Every 5 minutes PRN SL Prn Chest Pain 09/26/17 06:30 10/26/17 06:29 Ondansetron HCl (Zofran) 4 mg Q6H PRN IVP Nausea & Vomiting 09/26/17 06:30 10/26/17 06:29 Polyethylene Glycol (Miralax) 17 gm DAILYPRN PRN ORAL Constipation 09/26/17 06:30 10/26/17 06:29 Promethazine HCl/ Codeine (Phenergan with Codeine) 5 ml Q6H PRN ORAL For Cough 09/27/17 18:00 10/27/17 17:59 09/28/17 11:40 Temazepam (Restoril) 15 mg HSPRN PRN ORAL Insomnia 09/26/17 06:30 10/03/17 06:29 Vancomycin HCl (Vanco rx to dose) 1 ea DAILY PRN MISC PER RX PROTOCOL 09/27/17 18:00 10/27/17 17:59 Vancomycin HCl/ Dextrose 250 ml @ 125 mls/hr Q12HR@1100,2300 IVPB 09/27/17 23:00 10/02/17 22:59 09/28/17 14:39 RAY DAVIDSON Sep 28, 2017 18:12
[2017-09-28] MEDS ORDERED: Tubing IV Secondary IV ONE (18:22)
[2017-09-28] MEDS ORDERED: NS 275ml ONE (18:22)
[2017-09-28] MEDS ORDERED: NS 500ML ONE (18:22)
--- NOTE | 2017-09-29 09:01 | Discharge Summary ---
Discharge Summary Hospital Course Date of Admission Sep 26, 2017 at 06:36 Date of Discharge Sep 28, 2017 at 18:23 Admitting Diagnosis [facility] Allan Choi is a 37 year old male who was admitted on Sep 26, 2017 at 06:[address] [facility] Course [id number] Discharge Discharge Disposition Patient was discharged home Discharge Diagnoses: Suzy Almeida NP Sep 29, 2017 09:01
--- NOTE | 2017-09-29 18:16 | General Progress Note ---
Assessment/Plan Status: stable, progressing Assessment/Plan anxiety d/o cont current meds Subjective Date patient seen: Sep 28, 2017 Neurologic/Psychiatric: Reports: anxiety, depressed, emotional problems Allergies: Coded Allergies: SULFA (SULFONAMIDE ANTIBIOTICS) (Verified Allergy, Unknown, 09/24/17) Objective Height (Feet): 6 Height (Inches): 2.00 Weight (Pounds): 140 General Appearance: no apparent distress, alert Neurologic: alert, oriented x 3, responsive, depressed affect Wali Reese M.D. Sep 29, 2017 18:16
--- NOTE | 2017-09-30 01:02 | Discharge Summary 2 SIG ---
DATE OF ADMISSION: 09/26/2017 DATE OF DISCHARGE: 09/28/2017 CONSULTANTS: 1. Reza Anderson M.D. 2. Kuldeep Herring M.D. BRIEF HOSPITAL COURSE: The patient is a 37-year-old male with history of human immunodeficiency virus, homeless, and street sex worker, was brought in by EMS to ED for complaints of increased swelling and drainage on the left buttock. He was recently in the hospital, however, left against medical advice. There was drainage coming out from the left buttock area and was complaining of increased pain. He left AMA the night prior and early in the morning, the patient presented back to ED. He was then admitted to medical floor for cellulitis and left buttock abscess. He was started on vancomycin and Levaquin. On examination, there was a 6 cm x 4 cm left buttock abscess with spontaneous drainage of purulent material from area of fluctuance. There was surrounding cellulitis and the area was tender on examination. He underwent incision and drainage at bedside by Dr. Herring. He also had fever 101.1. Tylenol was given and blood culture did not isolate any growth. He was anxious and irritable and was diagnosed to have anxiety disorder with noncompliance. He was given Lexapro. He was checked for STDs, chlamydia, gonorrhea, and syphilis results were negative. He has HIV and has not been taking his medications. CD4 count unknown. Fever resolved and there was no leukocytosis. Wound culture showed growth of Staph aureus. He was given wound care. He was eventually discharged home. Prescription for Bactrim given. FINAL DIAGNOSES: 1. Left buttock abscess status post incision and drainage. 2. Human immunodeficiency virus. 3. Bronchitis. 4. History of drug abuse. 5. History of alcohol abuse. 6. Hypertension. 7. Asthma. 8. Anxiety disorder. 9. Non-compliance. DISPOSITION: The patient was discharged home. DISCHARGE MEDICATIONS: The patient was given prescription for antibiotic. FOLLOWUP: The patient was advised to follow up with PMD in a week. Aurea Ellis M.D. I have been assigned to dictate discharge summary on this account and I was not involved in the patient's management. Suzy Almeida N.P. DR: BRIDGET JOB#: [id number] CC: VALERIE
== END 2017-09-28 18:23 | disposition home or self-care (01) | DRG 894 ==
LOC: EDBD 05:37 → EMR 05:50 → 4W 06:36 → EDBEDREQ 07:11 → 4W 15:21
PROC: 0Y910ZZ Drainage of Left Buttock, Open Approach (ICD-10-PCS; principal; 2017-09-26)
DX: L02.31 Cutaneous abscess of buttock (principal); B20 Human immunodeficiency virus [HIV] disease; I10 Essential (primary) hypertension; Z88.2 Allergy status to sulfonamides; Z59.0 Homelessness; F41.9 Anxiety disorder, unspecified; Z91.19 Patient's noncompliance with other medical treatment and regimen; J40 Bronchitis, not specified as acute or chronic; B95.61 Methicillin susceptible Staphylococcus aureus infection as the cause of diseases classified elsewhere; L03.317 Cellulitis of buttock; J45.909 Unspecified asthma, uncomplicated; F10.21 Alcohol dependence, in remission; F19.11 Other psychoactive substance abuse, in remission
CPT/HCPCS: 36415; 80053; 80202; 82962; 85025; 85610; 85730; 86850; 86900; 86901; 87040; 87070; 87081; 87181; 87205; 93970; 94664; 99285